=== PATIENT | male | born 1950 | race Hispanic/Latino ===

== ENCOUNTER 2018-03-17 16:41 | Emergency (ER) | payer OTHER ==
[2018-03-17] MEDS ORDERED: DICYCLOMINE HCL 10 MG CAP ONE (17:31)
[2018-03-17] MEDS ORDERED: ONDANSETRON 4 MG/2 ML VIAL ONE (17:32)
[2018-03-17] MEDS ORDERED: PANTOPRAZOLE 40 MG INJ ONE (17:32)
[2018-03-17 17:52] LABS: Absolute Lymphocytes (CBC) 0.8 K/uL (0.7-4.9); Absolute Monocytes 0.4 K/uL (0.1-1.3); Absolute Neutrophil 3.8 K/uL (1.8-8.0); Basophils % 0.8 % (0-1.3); Eosinophils % 1.5 % (0-4.4); Hematocrit 39.2 % (39.6-49.0); Lymphocytes % 16.1 % (15.3-44.8); MCH 28.1 pg (27.0-35.0); MCV 89.8 fL (80-100); MPV 8.6 fL (7.6-11.3); Monocytes % 7.1 % (3.3-12.3); RBC Red Blood Cell Count 4.36 M/uL (4.33-5.43)
[2018-03-17 18:40] LABS: AST/SGOT 16 U/L (15-37); Alkaline Phosphatase 128 U/L (45-117); Amylase Level 22 U/L (25-115); BUN Blood Urea Nitrogen 38 mg/dL (7-18); Bicarbonate 19 mmol/L (21-32); Bilirubin Direct 0.1 mg/dL (0-0.2); Bilirubin Total 0.4 mg/dL (0.2-1.0); Glucose Level 133 mg/dL (74-106); Lipase 22 U/L (73-393); Magnesium 1.9 mg/dL (1.8-2.4); Potassium 4.8 mmol/L (3.5-5.1); Sodium Level 131 mmol/L (136-145)
[2018-03-17 18:43] LABS: ALT/SGPT < 6 U/L (12-78)
[2018-03-17] MEDS ORDERED: HYDRALAZINE HCL 10 MG TABLET ONE (18:49)
--- NOTE | 2018-03-17 19:54 | RAD REPORT ---
EXAM DESCRIPTION: CT - Abdomen Pelvis Wo Contrast - 03/17/2018 7:34 pm CLINICAL HISTORY: Abdominal pain GI bleeding COMPARISON: October 2016 TECHNIQUE: Computed axial tomography of the abdomen and pelvis was obtained. IV was not requested. O ral contrast was given. Coronal reconstructions performed. All CT scans are performed using dose optimization technique as appropriate and may include automated exposure control or mA/KV adjustment according to patient size. FINDINGS: The evaluation of solid organs and vessels is limited secondary to the lack of contrast a dministration. Small bilateral pleural effusions are present. The liver, spleen, pancreas, and adrenals appear grossly normal. The pancreas is markedly atrophic. The kidneys are small. A transplant kidney is present within the left pelvis without hydronephrosis The appendix is normal. There is no evidence of diverticulitis. IMPRESSION: Small bilateral pleural effusions No acute abnormality involving the abdomen/pelvis is seen
[2018-03-17] MEDS ORDERED: cloNIDine HCl 0.1 MG TAB ONE (20:44)
[2018-03-17] MEDS ORDERED: MAGNE/ALUM HYDROXD 30 ML UCUP ONE (20:50)
[2018-03-17] MEDS ORDERED: LIDOCAINE VISCOUS 2% SOLN 15 ML UDC ONE (20:51)
[2018-03-17 21:24] LABS: Urine Blood 1+ (NEG); Urine Glucose TRACE (NEG); Urine Protein 3+ (NEG); Urine Specific Gravity 1.025 (1.005-1.030)
[2018-03-17 21:32] LABS: Urine Bacteria <20 /HPF (NONE SEEN); Urine Culture Reflex Order REFLEXED; Urine Mucus SLIGHT /HPF (NONE SEEN); Urine Sperm PRESENT (NONE SEEN)
--- NOTE | 2018-03-17 22:09 | EDPHYS ---
Physician Documentation [facility] Name: Francisco Javier Barnard Age: 67 yrs Sex: Male : 1950 Arrival Date: 03/17/2018 Time: 16:44 Bed 17 Private MD: None, None ED Physician Jose Orlando HPI: 03/17 16:55 This 67 yrs old Male presents to ER via Wheelchair with complaints of Abd Pain cp > 50 y/o. 16:55 The patient presents with abdominal pain mid abdomen. Onset: The symptoms/episode cp began/occurred 3 day(s) ago. Associated signs and symptoms: Pertinent positives: nausea and vomiting, anorexia, Pertinent negatives: chest pain, constipation, diarrhea, fever, shortness of breath, vomiting blood. The symptoms are described as waxing/waning. Modifying factors: the symptoms are aggravated by food. Historical: - Allergies: 16:52 No Known Allergies; sg - Home Meds: 18:43 hydralazine 10 mg Oral tab [Active]; metoprolol tartrate 25 mg Oral tab 1 tab [Active]; em sertraline 25 mg oral tab 1 tab once daily [Active]; gabapentin 100 mg oral cap 3 times per day [Active]; hydrocortisone 10 mg Oral tab 1 tab once daily [Active]; terazosin 2 mg oral cap 1 cap once daily [Active]; aspirin 81 mg Oral chew 1 tab once daily [Active]; pantoprazole 40 mg oral TbEC 1 tab 2 times per day [Active]; atorvastatin 40 mg oral tab 1 tab once daily [Active]; furosemide 20 mg Oral tab 1 tab 2 times per day [Active]; - PMHx: 16:52 Diabetes - IDDM; Dialysis; ESRD; Hypertension; sg - PSHx: 16:52 Kidney transplant; fistula to left arm; sg - Immunization history:: Adult Immunizations up to date. - Social history:: Smoking status: Patient/guardian denies using tobacco. - Ebola Screening: : Patient negative for fever greater than or equal to 101.5 degrees Fahrenheit, and additional compatible Ebola Virus Disease symptoms Patient denies exposure to infectious person Patient denies travel to an Ebola-affected area in the 21 days before illness onset No symptoms or risks identified at this time. ROS: 17:00 Constitutional: Negative for body aches, chills, fever, poor PO intake. cp 17:00 Eyes: Negative for injury, pain, redness, and discharge. cp 17:00 ENT: Negative for drainage from ear(s), ear pain, sore throat, difficulty swallowing, cp difficulty handling secretions. 17:00 Cardiovascular: Negative for chest pain, edema, palpitations. 17:00 Respiratory: Negative for cough, shortness of breath, wheezing. 17:00 Abdomen/GI: Positive for abdominal pain, nausea and vomiting, Negative for diarrhea, constipation, hematemesis, black/tarry stool, rectal bleeding. 17:00 Back: Negative for radiated pain. cp 17:00 Skin: Negative for cellulitis, rash. 17:00 Neuro: Negative for altered mental status, dizziness, headache, syncope, near syncope, weakness. 17:00 All other systems are negative. Exam: 17:07 Constitutional: The patient appears in no acute distress, alert, awake, cp non-diaphoretic, non-toxic, well developed, well nourished. 17:07 Head/Face: Normocephalic, atraumatic. cp 17:07 Eyes: Pupils equal round and reactive to light, extra-ocular motions intact. Lids and cp lashes normal. Conjunctiva and sclera are non-icteric and not injected. Cornea within normal limits. Periorbital areas with no swelling, redness, or edema. 17:07 ENT: External ear(s): are unremarkable, Nose: is normal, Mouth: Lips: moist, Oral cp mucosa: moist, Posterior pharynx: is normal, airway is patent, no erythema, no exudate, Voice: is normal. 17:07 Neck: ROM/movement: is normal, is supple, without pain, no range of motions limitations, no nuchal rigidity. 17:07 Chest/axilla: Inspection: normal, Palpation: is normal, no crepitus, no tenderness. 17:07 Cardiovascular: Rate: normal, Rhythm: regular, Edema: is not appreciated, JVD: is not appreciated. 17:07 Respiratory: the patient does not display signs of respiratory distress, Respirations: normal, no use of accessory muscles, no retractions, no splinting, no tachypnea, labored breathing, is not present, Breath sounds: decreased breath sounds, that are mild, throughout, stridor, is not appreciated, wheezing: is not appreciated. 17:07 Abdomen/GI: Inspection: abdomen appears normal, Bowel sounds: active, all quadrants, Palpation: soft, in all quadrants, mild abdominal tenderness, in the abdomen diffusely, rebound tenderness, is not appreciated, voluntary guarding, is not appreciated, involuntary guarding, is not appreciated. 17:07 Back: pain, is absent, ROM is normal. 17:07 Skin: cellulitis, is not appreciated, no rash present. 17:07 Neuro: Orientation: to person, place \T\ time. Mentation: is normal. 17:30 ECG was reviewed by the Attending Physician. cp Vital Signs: 17:03 BP 200 / 72; Pulse 60; Resp 17; Pulse Ox 97% on R/A; em 17:04 Resp 19; Temp 97.7(TE); Pulse Ox 96% on R/A; Pain 9/10; sg 17:45 BP 162 / 89; Pulse 61; Resp 18; Pulse Ox 97% on R/A; Pain 8/10; em 18:52 BP 212 / 85; Pulse 61; Resp 18; Pulse Ox 97% on R/A; Pain 0/10; em 19:15 BP 216 / 87; Pulse 61; Resp 16 S; Pulse Ox 97% on R/A; bs1 20:15 BP 198 / 80; Pulse 61; Resp 17 S; Pulse Ox 95% on R/A; bs1 21:15 BP 207 / 86; Pulse 57; Resp 16; Temp 97.9(O); Pulse Ox 97% on R/A; Pain 5/10; bs1 22:05 BP 184 / 77; Pulse 58; Resp 17; Temp 97.9(O); Pulse Ox 100% on R/A; Pain 4/10; bs1 MDM: 16:53 Patient medically screened. cp 18:00 Differential diagnosis: diverticulitis, gastritis, pancreatitis, Peptic Ulcer Disease, cp Perf. Duodenal Ulcer, Perf. Gastric Ulcer, urinary tract infection. 22:05 Data reviewed: vital signs, nurses notes, lab test result(s), radiologic studies, CT cp scan. 22:05 Counseling: I had a detailed discussion with the patient and/or guardian regarding: the cp historical points, exam findings, and any diagnostic results supporting the discharge/admit diagnosis, lab results, radiology results, the need for outpatient follow up, an manufacturing automation engineer, nephrology, to return to the emergency department if symptoms worsen or persist or if there are any questions or concerns that arise at home. Response to treatment: the patient's symptoms have markedly improved after treatment, Blood pressure improved. Abdominal pain improved. No vomiting observed in ED. Will discharge to home for continued monitoring. 03/17 17:16 Order name: Amylase, Serum; Complete Time: 18:52 03/17 17:16 Order name: Basic Metabolic Panel; Complete Time: 18:52 03/17 19:42 Interpretation: Normal except: NA 131; CL 97; CO2 19; GLUC 133; BUN 38; CRE 6.90; GFR cp 8; CA 8.0. 03/17 17:16 Order name: CBC with Diff; Complete Time: 18:18 03/17 18:18 Interpretation: Normal except: HGB 12.2; HCT 39.2; MCV 89.8; MCH 28.1; MCHC 31.3; RDW cp 17.7; LAKESHA% 74.5. 03/17 17:16 Order name: Creatinine for Radiology; Complete Time: 18:52 03/17 19:55 Interpretation: Reviewed. 03/17 17:16 Order name: Hepatic Function; Complete Time: 18:52 03/17 18:52 Interpretation: Normal except: ALT < 6; ALK 128; ALB 3.0; GLOB 4.0; A/G 0.8. 03/17 17:16 Order name: Lipase; Complete Time: 18:52 03/17 17:16 Order name: Urine Microscopic Only 03/17 17:16 Order name: Magnesium; Complete Time: 18:52 03/17 17:16 Order name: CT Abd/Pelvis - Without Cont: give oral contrast; Complete Time: 19:55 03/17 21:07 Order name: Urine Dipstick--Ancillary (enter results) eb 03/17 21:34 Order name: Urine Culture EDNC 03/17 17:16 Order name: IV Saline Lock; Complete Time: 18:51 03/17 17:16 Order name: Labs collected and sent; Complete Time: 18:51 03/17 17:16 Order name: Urine Dipstick-Ancillary (obtain specimen); Complete Time: 22:19 03/17 17:16 Order name: EKG; Complete Time: 17:16 03/17 17:16 Order name: EKG - Nurse/Tech; Complete Time: 18:51 cp 03/17 19:56 Order name: PO challenge; Complete Time: 20:37 cp EC:30 Rate is 61 beats/min. Rhythm is regular. MN interval is prolonged at 348 msec. QRS cp interval is normal. QT interval is normal. T waves are Inverted in lead aVL. Interpreted by me. Reviewed by me. Administered Medications: 17:45 Drug: Bentyl 20 mg Route: PO; em 18:51 Follow up: Response: No adverse reaction em 17:49 Drug: ProTONIX 40 mg Route: IVP; Site: right antecubital; ss 18:51 Follow up: Response: No adverse reaction; Pain is decreased; Nausea is decreased em 17:57 Drug: Zofran 4 mg Route: IVP; Site: right antecubital; ss 18:50 Follow up: Response: No adverse reaction; Nausea is decreased em 18:53 Drug: hydrALAZINE 20 mg Route: PO; em 22:26 Follow up: Response: No adverse reaction bs1 20:46 Drug: cloNIDine 0.2 mg Route: PO; bs1 22:26 Follow up: Response: No adverse reaction bs1 21:04 Drug: GI Cocktail without - (Maalox Suspension 30 ml, Lidocaine Liquid 2 % 15 bs1 ml) Route: PO; 22:26 Follow up: Response: No adverse reaction bs1 Disposition: 03/18 07:02 Co-signature as Attending Physician, Jose Orlando MD. rn Disposition: 03/17/18 22:08 Discharged to Home. Impression: Unspecified abdominal pain, Hypertensive heart and chronic kidney disease. - Condition is Stable. - Discharge Instructions: Abdominal Pain, Adult. - Prescriptions for Bentyl 20 mg Oral Tablet - take 2 tablet by ORAL route every 6 hours As needed; 40 tablet. Protonix 40 mg Oral Tablet - take 1 tablet by ORAL route once daily; 30 tablet. Zofran 4 mg Oral Tablet - take 1 tablet by ORAL route every 12 hours As needed; 20 tablet. - Medication Reconciliation Form, Thank You Letter, Antibiotic Education, Prescription Opioid Use form. - Follow up: Private Physician; When: 1 - 2 days; Reason: Recheck today's complaints. - Problem is new. - Symptoms have improved. Signatures: Dispatcher [facility] John Eaton, RN RN sg Efren Degroot, DIVERSITY SPECIALIST DIVERSITY SPECIALIST Jose Barrera MD MD rn Smirch, Shelby, RN RN ss Page, Corey, PA PA cp Amanda Blair, RN RN bs1 Corrections: (The following items were deleted from the chart) 03/17 19:43 18:52 Normal except: NA 131; CL 97; CO2 19; GLUC 133; BUN 38; CRE 6.90; GFR 8. cp cp 21:04 19:23 Apple ordered. cp bs1 22:27 22:08 03/17/2018 22:08 Discharged to Home. Impression: Unspecified abdominal pain; bs1 Hypertensive heart and chronic kidney disease. Condition is Stable. Forms are Medication Reconciliation Form, Thank You Letter, Antibiotic Education, Prescription Opioid Use. Follow up: Private Physician; When: 1 - 2 days; Reason: Recheck today's complaints. Problem is new. Symptoms have improved. cp
--- NOTE | 2018-03-17 22:09 | ER ---
Nurse's Notes [facility] Name: Francisco Javier Barnard Age: 67 yrs Sex: Male : 1950 Arrival Date: 03/17/2018 Time: 16:44 Bed 17 Private MD: None, None Diagnosis: Unspecified abdominal pain;Hypertensive heart and chronic kidney disease Presentation: 03/17 16:50 Presenting complaint: Patient states: Loss of appetite for two days, c/o pain and sg bleeding to his Dialysis port as well that started today. Transition of care: patient was not received from another setting of care. Onset of symptoms was March 17, 2018. Risk Assessment: Do you want to hurt yourself or someone else? Patient reports no desire to harm self or others. Initial Sepsis Screen: Does the patient meet any 2 criteria? No. Patient's initial sepsis screen is negative. Does the patient have a suspected source of infection? No. Patient's initial sepsis screen is negative. Care prior to arrival: None. 16:50 Method Of Arrival: Wheelchair sg 16:50 Acuity: AUDRA 3 sg Historical: - Allergies: 16:52 No Known Allergies; sg - Home Meds: 18:43 hydralazine 10 mg Oral tab [Active]; metoprolol tartrate 25 mg Oral tab 1 tab [Active]; em sertraline 25 mg oral tab 1 tab once daily [Active]; gabapentin 100 mg oral cap 3 times per day [Active]; hydrocortisone 10 mg Oral tab 1 tab once daily [Active]; terazosin 2 mg oral cap 1 cap once daily [Active]; aspirin 81 mg Oral chew 1 tab once daily [Active]; pantoprazole 40 mg oral TbEC 1 tab 2 times per day [Active]; atorvastatin 40 mg oral tab 1 tab once daily [Active]; furosemide 20 mg Oral tab 1 tab 2 times per day [Active]; - PMHx: 16:52 Diabetes - IDDM; Dialysis; ESRD; Hypertension; sg - PSHx: 16:52 Kidney transplant; fistula to left arm; sg - Immunization history:: Adult Immunizations up to date. - Social history:: Smoking status: Patient/guardian denies using tobacco. - Ebola Screening: : Patient negative for fever greater than or equal to 101.5 degrees Fahrenheit, and additional compatible Ebola Virus Disease symptoms Patient denies exposure to infectious person Patient denies travel to an Ebola-affected area in the 21 days before illness onset No symptoms or risks identified at this time. Screenin:20 Abuse screen: Denies threats or abuse. Nutritional screening: No deficits noted. em Tuberculosis screening: No symptoms or risk factors identified. Fall Risk None identified. Assessment: 17:20 General: Appears in no apparent distress. uncomfortable, Behavior is calm, cooperative. em Pain: Complains of pain in epigastric area Pain currently is 8 out of 10 on a pain scale. Pain began 2-3 days ago. Neuro: Level of Consciousness is awake, alert, Oriented to person, place, time, Denies dizziness. Cardiovascular: Capillary refill < 3 seconds Patient's skin is warm and dry. Dialysis shunt: in the left bicep, with palpable thrill, with auscultated bruit, with no erythema, with no edema, mild amount of bleeding noted pt had new dialysis shunt placed yesterday, mild blood noted, Tegaderm clean and intact. Respiratory: Airway is patent Respiratory effort is even, unlabored, Respiratory pattern is regular, symmetrical. GI: Abdomen is flat, Bowel sounds present X 4 quads. Abd is soft X 4 quads Abdomen is tender to palpation X 4 quads. Reports nausea. Derm: Skin is intact, Skin is pink, warm \T\ dry. Musculoskeletal: Range of motion: intact in all extremities. 17:25 General: The previous assessment is accurate, call light remains within reach. . ss 18:00 Reassessment: Patient appears in no apparent distress at this time. pt finished em drinking PO contrast, tolerated well, CT dept. notified. 18:44 Reassessment: Patient appears in no apparent distress at this time. Patient and/or em family updated on plan of care and expected duration. Pain level reassessed. Patient is alert, oriented x 3, equal unlabored respirations, skin warm/dry/pink. 18:50 Reassessment: Patient appears in no apparent distress at this time. BP 212/85, HR 61 em HUSEYIN Lewis notified of VS, new medication orders received. 19:10 Reassessment: Report received from JOHN Schwartz. bs1 19:10 General: Appears in no apparent distress. uncomfortable, Behavior is calm, cooperative, bs1 appropriate for age. Pain: Complains of pain in abdomen and epigastric area Pain currently is 5 out of 10 on a pain scale. Pain began 2-3 days ago. Neuro: Level of Consciousness is awake, alert, obeys commands, Oriented to person, place, time, situation, Appropriate for age Denies dizziness. Cardiovascular: Denies chest pain, shortness of breath, Heart tones S1 S2 present Capillary refill < 3 seconds Patient's skin is warm and dry. Dialysis shunt: in the left arm, with palpable thrill, with auscultated bruit, with no erythema, with no edema, mild amount of bleeding noted. Respiratory: Airway is patent Trachea midline Respiratory effort is even, unlabored, Respiratory pattern is regular, symmetrical, Breath sounds are clear bilaterally. GI: Abdomen is flat, non-distended, Bowel sounds present X 4 quads. Abd is soft X 4 quads Abdomen is tender to palpation X 4 quads. Reports upper abdominal pain, epigastric pain. : No signs and/or symptoms were reported regarding the genitourinary system. Derm: Skin is intact, Skin is pink, warm \T\ dry. Musculoskeletal: Circulation, motion, and sensation intact. Capillary refill < 3 seconds, Range of motion: intact in all extremities. 21:00 Reassessment: PA Page gave nurse verbal order to give GI cocktail. Clonidine 0.2mg po bs1 given x1. Pending blood pressure to decrease for discharge. 21:15 Reassessment: Patient appears in no apparent distress at this time. Patient and/or bs1 family updated on plan of care and expected duration. Pain level reassessed. Patient is alert, oriented x 3, equal unlabored respirations, skin warm/dry/pink. 22:05 Reassessment: Informed PA of recent blood pressure 184/77. bs1 22:23 Reassessment: Patient appears in no apparent distress at this time. Patient and/or bs1 family updated on plan of care and expected duration. Pain level reassessed. Patient is alert, oriented x 3, equal unlabored respirations, skin warm/dry/pink. Patient states feeling better. Patient states symptoms have improved. Vital Signs: 17:03 BP 200 / 72; Pulse 60; Resp 17; Pulse Ox 97% on R/A; em 17:04 Resp 19; Temp 97.7(TE); Pulse Ox 96% on R/A; Pain 9/10; sg 17:45 BP 162 / 89; Pulse 61; Resp 18; Pulse Ox 97% on R/A; Pain 8/10; em 18:52 BP 212 / 85; Pulse 61; Resp 18; Pulse Ox 97% on R/A; Pain 0/10; em 19:15 BP 216 / 87; Pulse 61; Resp 16 S; Pulse Ox 97% on R/A; bs1 20:15 BP 198 / 80; Pulse 61; Resp 17 S; Pulse Ox 95% on R/A; bs1 21:15 BP 207 / 86; Pulse 57; Resp 16; Temp 97.9(O); Pulse Ox 97% on R/A; Pain 5/10; bs1 22:05 BP 184 / 77; Pulse 58; Resp 17; Temp 97.9(O); Pulse Ox 100% on R/A; Pain 4/10; bs1 ED Course: 16:44 Patient arrived in ED. sb2 16:44 None, None is Private Physician. sb2 16:49 Joshua Moise PA is PHCP. cp 16:49 Jose Orlando MD is Attending Physician. cp 16:51 Triage completed. sg 16:52 Arm band placed on. sg 17:02 Efren Degroot LVN is Primary Nurse. em 17:20 Patient has correct armband on for positive identification. Bed in low position. Call em light in reach. Side rails up X2. Adult w/ patient. 17:30 Missed attempt(s): 22 gauge in right antecubital area. mh5 17:37 EKG done, by medical research tech. reviewed by Joshua FONTANEZ. 3 18:50 Pulse ox on. NIBP on. mh5 19:[address] nj 19:32 CT completed. Patient tolerated procedure well. Patient moved back from CT. nj 19:34 CT Abd/Pelvis - Without Cont: give oral contrast In Process Unspecified. EDMS 22:22 No provider procedures requiring assistance completed. IV discontinued, bleeding bs1 controlled, No redness/swelling at site. Pressure dressing applied. Administered Medications: 17:45 Drug: Bentyl 20 mg Route: PO; em 18:51 Follow up: Response: No adverse reaction em 17:49 Drug: ProTONIX 40 mg Route: IVP; Site: right antecubital; ss 18:51 Follow up: Response: No adverse reaction; Pain is decreased; Nausea is decreased em 17:57 Drug: Zofran 4 mg Route: IVP; Site: right antecubital; ss 18:50 Follow up: Response: No adverse reaction; Nausea is decreased em 18:53 Drug: hydrALAZINE 20 mg Route: PO; em 22:26 Follow up: Response: No adverse reaction bs1 20:46 Drug: cloNIDine 0.2 mg Route: PO; bs1 22:26 Follow up: Response: No adverse reaction bs1 21:04 Drug: GI Cocktail without - (Maalox Suspension 30 ml, Lidocaine Liquid 2 % 15 bs1 ml) Route: PO; 22:26 Follow up: Response: No adverse reaction bs1 Outcome: 22:08 Discharge ordered by MD. cp 22:22 Discharged to home ambulatory, with significant other. bs1 22:22 Condition: stable 22:22 Discharge instructions given to patient, family, Instructed on discharge instructions, follow up and referral plans. medication usage, Demonstrated understanding of instructions, follow-up care, medications, Prescriptions given X 3. 22:27 Patient left the ED. bs1 Signatures: Dispatcher [employer] EDJohn Townsend, RN RN sg Efren Degroot, PHP WEB DEVELOPER PHP WEB DEVELOPER em Ella Cabezas RN RN ss Joshua Moise PA PA Edis zAul Maria Amanda Wright, RN RN bs1 Marjyane Marie sb2 Katlin Helton sm3 Corrections: (The following items were deleted from the chart) 18:49 18:48 Missed attempt(s): 22 gauge in right antecubital area. 5 5 22:26 22:05 BP 184 / 77; Pulse 58bpm; Resp 17bpm; Pulse Ox 100% RA; bs1 bs1
[2018-03-17 22:38] VITALS: TEMP 97.9
[2018-03-17 22:39] VITALS: BP 184/77; O2SAT 100
--- NOTE | 2018-03-17 23:00 | EKG ---
Test Date: 2018-03-17 Test Time: 17:24:33 Balancing Machine Set Up Worker: TARA MEASUREMENT RESULTS: Intervals: Rate: 61 [place]: 348 QRSD: 94 QT: 430 QTc: 432 [place]: P: -7 NJ: 348 QRS: 63 T: 134 INTERPRETIVE STATEMENTS: Sinus rhythm with 1st degree AV block ST & T wave abnormality, consider lateral ischemia Abnormal ECG Compared to ECG 09/28/2017 12:58:58 Possible ischemia now present ST (T wave) deviation still present Electronically Signed On 03-17-18 23:00:25 CDT by Janes Oliveira
== END 2018-03-17 22:27 | disposition home or self-care (01) ==
LOC: ER 16:41
DX: I13.11 Hypertensive heart and chronic kidney disease without heart failure, with stage 5 chronic kidney disease, or end stage renal disease (principal); N18.6 End stage renal disease; Z99.2 Dependence on renal dialysis; E11.9 Type 2 diabetes mellitus without complications; Z79.82 Long term (current) use of aspirin
CPT/HCPCS: 36415; 74176; 80048; 80076; 82150; 83690; 83735; 85025; 87086; 87088; 93005; 96374; 96375; 99284; C9113; J2405; 81003; 81015

== ENCOUNTER 2018-03-20 19:50 | Emergency (ER) | payer OTHER ==
[2018-03-20] MEDS ORDERED: LABETALOL 20 MG/4ML SYRINGE IV ONE ×2 (20:52→21:54)
[2018-03-20 20:56] LABS: Absolute Lymphocytes (CBC) 0.8 K/uL (0.7-4.9); Absolute Monocytes 0.4 K/uL (0.1-1.3); Absolute Neutrophil 2.5 K/uL (1.8-8.0); Basophils % 0.8 % (0-1.3); Hematocrit 36.8 % (39.6-49.0); MCH 29.1 pg (27.0-35.0); MCV 87.7 fL (80-100); MPV 8.2 fL (7.6-11.3); RBC Red Blood Cell Count 4.19 M/uL (4.33-5.43)
--- NOTE | 2018-03-20 21:16 | RAD REPORT ---
EXAM DESCRIPTION: Mey Single View03/20/2018 8:49 pm CLINICAL HISTORY: Chest pain COMPARISON: September 2017 FINDINGS: Patchy bilateral alveolar opacities are present within the lungs. The heart is mildly enl arged. A central venous catheter remains in place. Small pleural effusions are suspected IMPRESSION: Mild to moderate patchy bilateral pulmonary opacities could represent pulmonary edema or pneumonia
[2018-03-20 21:23] LABS: Albumin 3.3 g/dL (3.4-5.0); Bilirubin Direct 0.1 mg/dL (0-0.2); Bilirubin Total 0.4 mg/dL (0.2-1.0); CKMB Creatine Kinase MB 3.1 ng/mL (0.3-3.6); Magnesium 1.9 mg/dL (1.8-2.4); Protein, Total 7.5 g/dL (6.4-8.2)
[2018-03-20 21:41] LABS: Protime INR 1.02
[2018-03-20] MEDS ORDERED: cloNIDine HCl 0.1 MG TAB ONE ×3 (21:53→22:50)
[2018-03-20] MEDS ORDERED: LABETALOL HCL 100 MG/20 ML ONE (21:53)
--- NOTE | 2018-03-20 23:34 | EDPHYS ---
Physician Documentation [facility] Name: Francisco Javier Barnard Age: 67 yrs Sex: Male : 1950 Arrival Date: 03/20/2018 Time: 19:56 Bed 2 Private MD: ED Physician Enmanuel Guthrie HPI: 03/20 23:35 This 67 yrs old Male presents to ER via EMS with complaints of elevated BP, tw4 possible mental status change. 23:35 The patient has elevated blood pressure and discovered this at home. Onset: The tw4 symptoms/episode began/occurred today. Modifying factors: The symptoms are aggravated by The symptoms are alleviated by. Associated signs and symptoms: The patient has no apparent associated signs or symptoms. Severity of symptoms: At its worst the blood pressure was severe, in the emergency department the blood pressure is unchanged. The patient has experienced similar episodes in the past, multiple times. Historical: - Allergies: 20:03 No Known Allergies; ak1 - Home Meds: 20:03 aspirin 81 mg Oral chew 1 tab once daily [Active]; atorvastatin 40 mg Oral tab 1 tab ak1 once daily [Active]; furosemide 20 mg Oral tab 1 tab 2 times per day [Active]; gabapentin 100 mg Oral cap 3 times per day [Active]; hydralazine 10 mg Oral tab [Active]; hydrocortisone 10 mg Oral tab 1 tab once daily [Active]; metoprolol tartrate 25 mg Oral tab 1 tab [Active]; pantoprazole 40 mg Oral TbEC 1 tab 2 times per day [Active]; sertraline 25 mg Oral tab 1 tab once daily [Active]; terazosin 2 mg Oral cap 1 cap once daily [Active]; - PMHx: 20:03 Diabetes - IDDM; Dialysis; ESRD; Hypertension; ak1 - PSHx: 20:03 Kidney transplant; fistula to left arm; ak1 - Immunization history:: Adult Immunizations unknown. - Social history:: Smoking status: unknown. - Ebola Screening: : No symptoms or risks identified at this time. ROS: 23:35 Constitutional: Negative for fever, chills, and weight loss, Cardiovascular: Negative tw4 for chest pain, palpitations, and edema, Respiratory: Negative for shortness of breath, cough, wheezing, and pleuritic chest pain, Abdomen/GI: Negative for abdominal pain, nausea, vomiting, diarrhea, and constipation, Back: Negative for injury and pain, MS/Extremity: Negative for injury and deformity, Skin: Negative for injury, rash, and discoloration, Neuro: Negative for headache, weakness, numbness, tingling, and seizure. Exam: 23:35 Constitutional: This is a well developed, well nourished patient who is awake, alert, tw4 and in no acute distress. Head/Face: Normocephalic, atraumatic. Chest/axilla: Normal chest wall appearance and motion. Nontender with no deformity. No lesions are appreciated. Cardiovascular: Regular rate and rhythm with a normal S1 and S2. No gallops, murmurs, or rubs. Normal PMI, no JVD. No pulse deficits. Respiratory: Lungs have equal breath sounds bilaterally, clear to auscultation and percussion. No rales, rhonchi or wheezes noted. No increased work of breathing, no retractions or nasal flaring. Abdomen/GI: Soft, non-tender, with normal bowel sounds. No distension or tympany. No guarding or rebound. No evidence of tenderness throughout. Back: No spinal tenderness. No costovertebral tenderness. Full range of motion. MS/ Extremity: Pulses equal, no cyanosis. Neurovascular intact. Full, normal range of motion. Neuro: Awake and alert, GCS 15, oriented to person, place, time, and situation. Cranial nerves II-XII grossly intact. Motor strength 5/5 in all extremities. Sensory grossly intact. Cerebellar exam normal. Normal gait. Vital Signs: 20:03 BP 226 / 95; Pulse 66; Resp 20; Temp 98.5(O); Pulse Ox 99% on R/A; Weight 63 kg (R); ak1 Height 62 in. (157.48 cm) (R); 21:11 BP 199 / 92; Pulse 75; Resp 20; Pulse Ox 97% on R/A; ea 21:32 BP 225 / 99; Pulse 76; Resp 18; Pulse Ox 99% on R/A; ea 21:47 BP 215 / 94; Pulse 77; Resp 18; Pulse Ox 97% on R/A; ak1 22:30 BP 158 / 100 RA (man/); Pulse 70; Resp 18; Pulse Ox 99% on R/A; ea 23:33 BP 160 / 92 RA Supine (man/); Pulse 80; Resp 20; Temp 98.5; Pulse Ox 97% on R/A; Pain ak1 0/10; 03/21 00:00 BP 152 / 90; Pulse 70; Resp 20; Temp 98.2(O); Pulse Ox 97% on R/A; ea 03/20 20:03 Body Mass Index 25.40 (63.00 kg, 157.48 cm) ak1 03/20 23:33 manual BP taken by Sayra Engle RN ak1 MDM: 20:28 Patient medically screened. tw4 23:35 Differential diagnosis: hypertensive crisis, Malignant HTN. Data reviewed: vital signs, tw4 nurses notes. Counseling: I had a detailed discussion with the patient and/or guardian regarding: the historical points, exam findings, and any diagnostic results supporting the discharge/admit diagnosis. Medication response: clonidine partially reduced the patient's blood pressure, Response to treatment: the patient's symptoms have markedly improved after treatment, and as a result, I will discharge patient. Special discussion: I discussed with the patient/guardian in detail that at this point there is no indication for admission to the hospital. It is understood, however, that if the symptoms persist or worsen the patient needs to return immediately for re-evaluation. 03/20 20:35 Order name: Basic Metabolic Panel; Complete Time: 22:19 tw4 03/20 22:20 Interpretation: Normal except: BUN 16; CRE 4.10; GFR 15; CA 8.0; NA 134. tw4 03/20 20:35 Order name: CBC with Diff; Complete Time: 22:19 tw4 03/20 22:20 Interpretation: Normal except: WBC 3.9; RBC 4.19; HGB 12.2; HCT 36.8; RDW 17.9; tw4 EOSINOPHIL % 5.0. 03/20 20:35 Order name: Ckmb; Complete Time: 22:19 tw4 03/20 22:20 Interpretation: Within normal limits: CKMB 3.1. tw03/20 20:35 Order name: CPK; Complete Time: 22:19 tw4 03/20 20:35 Order name: LFT's; Complete Time: 22:19 tw4 03/20 22:20 Interpretation: Normal except: ALT 10; ALK 145; ALB 3.3; GLOB 4.2; A/G 0.8. 03/20 20:35 Order name: Magnesium; Complete Time: 22:19 03/20 22:20 Interpretation: Within normal limits: MG 1.9. 03/20 20:35 Order name: NT PRO-BNP; Complete Time: 22:19 03/20 20:35 Order name: PT-INR; Complete Time: 22:19 03/20 22:20 Interpretation: Within normal limits: PT 12.0. 03/20 20:35 Order name: Ptt, Activated; Complete Time: 22:19 03/20 22:21 Interpretation: Within normal limits: PTT 26.3. 03/20 20:35 Order name: Troponin (emerg Dept Use Only); Complete Time: 22:19 03/20 20:35 Order name: XRAY Chest (1 view); Complete Time: 22:19 03/20 20:35 Order name: EKG; Complete Time: 20:38 03/20 20:35 Order name: Cardiac monitoring; Complete Time: 20:49 03/20 20:35 Order name: EKG - Nurse/Tech; Complete Time: 20:36 03/20 20:35 Order name: IV Saline Lock; Complete Time: 20:36 03/20 20:35 Order name: Labs collected and sent; Complete Time: 20:49 03/20 20:35 Order name: O2 Per Protocol; Complete Time: 20:36 03/20 20:35 Order name: O2 Sat Monitoring; Complete Time: 20:36 tw4 EC/03 00:10 Rate is 67 beats/min. Rhythm is regular. QRS [place] is Normal. CT interval is normal. QRS tw4 interval is normal. QT interval is normal. No Q waves. T waves are Peaked in leads V1, V2, V3. T waves are Inverted in leads II, V5, V6. ST Segment is depressed in leads I, III. Clinical impression: No change from prior ECG, Cardiac ischemia, and LVH. Interpreted by me. Reviewed by me. Administered Medications: 03/20 20:59 Drug: Labetalol 10 mg Route: IVP; Infused Over: 2 mins; Site: right hand; ea 21:47 Follow up: Response: No adverse reaction; Blood pressure is lowered ak1 21:56 Drug: cloNIDine 0.1 mg Route: PO; ak1 22:39 Follow up: Response: No adverse reaction ak1 21:56 Drug: Labetalol 10 mg Route: IVP; Infused Over: 2 mins; Site: right hand; ak1 22:39 Follow up: Response: No adverse reaction ak1 22:47 Drug: cloNIDine 0.2 mg Route: PO; ak1 23:35 Follow up: Response: No adverse reaction; Blood pressure is lowered ak1 23:36 Not Given (verbal orders from Dr. Guthrie to hold medication ): HydrALAZINE 25 mg PO onceak1 Disposition: 03/20/18 23:34 Discharged to Home. Impression: Hypertension secondary to other renal disorders, Chronic kidney disease, stage 5. - Condition is Stable. - Discharge Instructions: Hypertension, Hypertension, [id number], How to Take Your Blood Pressure, [id number], Chronic Kidney Disease, Dialysis Diet, [id number]. - Medication Reconciliation Form, Thank You Letter, Antibiotic Education, Prescription Opioid Use form. - Follow up: Private Physician; When: As needed; Reason: Recheck today's complaints, Re-evaluation by your physician. - Problem is new. - Symptoms have improved. Signatures: Dispatcher [employer] EDAmalia Melissa RN RN ak1 Ramona Pablo RN RN ea Wadley, Terrence, MD MD tw4 Corrections: (The following items were deleted from the chart) 23:59 20:35 Urine Dipstick-Ancillary ordered. tw4 ak1 03/21 00:16 03/20 23:34 03/20/2018 23:34 Discharged to Home. Impression: Hypertension secondary to ea other renal disorders; Chronic kidney disease, stage 5. Condition is Stable. Forms are Medication Reconciliation Form, Thank You Letter, Antibiotic Education, Prescription Opioid Use. Follow up: Private Physician; When: As needed; Reason: Recheck today's complaints, Re-evaluation by your physician. Problem is new. Symptoms have improved. tw4
--- NOTE | 2018-03-20 23:34 | ER ---
Nurse's Notes [facility] Name: Francisco Javier Barnard Age: 67 yrs Sex: Male : 1950 Arrival Date: 03/20/2018 Time: 19:56 Bed 2 Private MD: Diagnosis: Hypertension secondary to other renal disorders;Chronic kidney disease, stage 5 Presentation: 03/20 19:58 Presenting complaint: EMS states: pt was more altered than "normal" per dialysis ak1 nurses. pt had 1.184L removed today. pt with current to port to right chest wall, new fistula to left arm. unknown wound to left foot with new bandages in place. Transition of care: patient was not received from another setting of care. Onset of symptoms is unknown. Risk Assessment: Do you want to hurt yourself or someone else? Patient reports no desire to harm self or others. Initial Sepsis Screen: Does the patient meet any 2 criteria? No. Patient's initial sepsis screen is negative. Does the patient have a suspected source of infection? No. Patient's initial sepsis screen is negative. Care prior to arrival: None. 19:58 Method Of Arrival: EMS: [facility] ak1 19:58 Acuity: AUDRA 2 ak1 Triage Assessment: 19:58 General: Appears in no apparent distress. Behavior is calm, cooperative. ak1 Historical: - Allergies: 20:03 No Known Allergies; ak1 - Home Meds: 20:03 aspirin 81 mg Oral chew 1 tab once daily [Active]; atorvastatin 40 mg Oral tab 1 tab ak1 once daily [Active]; furosemide 20 mg Oral tab 1 tab 2 times per day [Active]; gabapentin 100 mg Oral cap 3 times per day [Active]; hydralazine 10 mg Oral tab [Active]; hydrocortisone 10 mg Oral tab 1 tab once daily [Active]; metoprolol tartrate 25 mg Oral tab 1 tab [Active]; pantoprazole 40 mg Oral TbEC 1 tab 2 times per day [Active]; sertraline 25 mg Oral tab 1 tab once daily [Active]; terazosin 2 mg Oral cap 1 cap once daily [Active]; - PMHx: 20:03 Diabetes - IDDM; Dialysis; ESRD; Hypertension; ak1 - PSHx: 20:03 Kidney transplant; fistula to left arm; ak1 - Immunization history:: Adult Immunizations unknown. - Social history:: Smoking status: unknown. - Ebola Screening: : No symptoms or risks identified at this time. Screenin:08 Abuse screen: Denies threats or abuse. Denies injuries from another. Nutritional ak1 screening: No deficits noted. Tuberculosis screening: No symptoms or risk factors identified. Fall Risk Gait- Weak (10 pts.). Assessment: 20:13 General: Appears in no apparent distress. Behavior is calm, cooperative, appropriate ea for age. General: Behavior is. Pain: Complains of pain in abdomen Pain radiates to lumbar area, left low back and right low back Pain currently is 7 out of 10 on a pain scale. Quality of pain is described as aching. Neuro: Level of Consciousness is awake, alert, obeys commands, Oriented to person, place, situation. Cardiovascular: Patient's skin is warm and dry. Respiratory: Airway is patent Respiratory effort is even, unlabored, Respiratory pattern is regular, symmetrical, Breath sounds are clear bilaterally. GI: Abdomen is non-distended, Bowel sounds present X 4 quads. : No signs and/or symptoms were reported regarding the genitourinary system. EENT: No signs and/or symptoms were reported regarding the EENT system. Derm: Skin is dry, Skin is normal, Skin temperature is warm. 21:15 Reassessment: Patient and/or family updated on plan of care and expected duration. Pain ea level reassessed. Pt alert and oriented to self, place and situation. Pt denies pain at this time. Respirations even and unlabored. chest expansions even and symmetrical. 23:36 Reassessment: pt son, Petey, contacted at [phone] for pt transport. Petey's akDerick stated she would be up to the ER to hot die picker pt. . 03/21 00:14 Reassessment: Patient and/or family updated on plan of care and expected duration. Pain ea level reassessed. Patient is alert, oriented x 3, equal unlabored respirations, skin warm/dry/pink. Discharge instructions given to patient and family, verbalized the understanding of instruction. Vital Signs: 03/20 20:03 BP 226 / 95; Pulse 66; Resp 20; Temp 98.5(O); Pulse Ox 99% on R/A; Weight 63 kg (R); ak1 Height 62 in. (157.48 cm) (R); 21:11 BP 199 / 92; Pulse 75; Resp 20; Pulse Ox 97% on R/A; ea 21:32 BP 225 / 99; Pulse 76; Resp 18; Pulse Ox 99% on R/A; ea 21:47 BP 215 / 94; Pulse 77; Resp 18; Pulse Ox 97% on R/A; ak1 22:30 BP 158 / 100 RA (man/); Pulse 70; Resp 18; Pulse Ox 99% on R/A; ea 23:33 BP 160 / 92 RA Supine (man/); Pulse 80; Resp 20; Temp 98.5; Pulse Ox 97% on R/A; Pain ak1 0/10; 03/21 00:00 BP 152 / 90; Pulse 70; Resp 20; Temp 98.2(O); Pulse Ox 97% on R/A; ea 03/20 20:03 Body Mass Index 25.40 (63.00 kg, 157.48 cm) ak1 03/20 23:33 manual BP taken by Sayra Engle RN ak1 ED Course: 19:56 Patient arrived in ED. ak1 20:00 Triage completed. ak1 20:01 Arm band placed on Patient placed in an exam room, on a stretcher, on pulse oximetry, ak1 Patient notified of wait time. 20:08 Patient has correct armband on for positive identification. Bed in low position. Call ak1 light in reach. Side rails up X2. desk monitor on. Pulse ox on. NIBP on. 20:13 Ramona Pablo, MELISA is Primary Nurse. ea 20:28 Enmanuel Guthrie MD is Attending Physician. tw4 20:35 Inserted saline lock: 22 gauge in right hand, using aseptic technique. Blood collected. ak1 20:35 EKG done, by ED staff, reviewed by Enmanuel Guthrie MD. ak1 20:48 XRAY Chest (1 view) In Process Unspecified. EDMS 23:36 No provider procedures requiring assistance completed. ak1 03/21 00:00 IV discontinued, intact, bleeding controlled, No redness/swelling at site. Pressure ea dressing applied. Administered Medications: 03/20 20:59 Drug: Labetalol 10 mg Route: IVP; Infused Over: 2 mins; Site: right hand; ea 21:47 Follow up: Response: No adverse reaction; Blood pressure is lowered ak1 21:56 Drug: cloNIDine 0.1 mg Route: PO; ak1 22:39 Follow up: Response: No adverse reaction ak1 21:56 Drug: Labetalol 10 mg Route: IVP; Infused Over: 2 mins; Site: right hand; ak1 22:39 Follow up: Response: No adverse reaction ak1 22:47 Drug: cloNIDine 0.2 mg Route: PO; ak1 23:35 Follow up: Response: No adverse reaction; Blood pressure is lowered ak1 23:36 Not Given (verbal orders from Dr. Guthrie to hold medication ): HydrALAZINE 25 mg PO onceak1 Outcome: 23:34 Discharge ordered by MD. casper 23:36 Condition: good ak1 03/21 00:13 Discharged to home via wheelchair, with family. karrie Discharge instructions given to patient, family, Instructed on discharge instructions, follow up and referral plans. Demonstrated understanding of instructions, follow-up care. 00:16 Patient left the ED. ea Signatures: Dispatcher [employer] Amalia Bello RN MELISA akRamona Valencia RN Enmanuel Martinez ea, MD MD tw4
[2018-03-21 00:46] VITALS: O2SAT 97
[2018-03-21 00:47] VITALS: BP 152/90; TEMP 98.2
--- NOTE | 2018-03-21 15:36 | EKG ---
Test Date: 2018-03-20 Test Time: 20:20:08 Ethnographic Materials Conservator: ELISE MEASUREMENT RESULTS: Intervals: Rate: 67 WV: 366 QRSD: 94 QT: 410 QTc: 433 [place]: P: 71 WV: 366 QRS: 73 T: 177 INTERPRETIVE STATEMENTS: Sinus rhythm with 1st degree AV block ST & T wave abnormality, consider inferolateral ischemia Abnormal ECG Compared to ECG 03/17/2018 17:24:33 No significant changes Electronically Signed On 03-21-18 15:34:05 CDT by Jose Pierre
== END 2018-03-21 00:16 | disposition home or self-care (01) ==
LOC: ER 19:50
DX: I12.0 Hypertensive chronic kidney disease with stage 5 chronic kidney disease or end stage renal disease (principal); E11.22 Type 2 diabetes mellitus with diabetic chronic kidney disease; N18.6 End stage renal disease; Z79.4 Long term (current) use of insulin; Z94.0 Kidney transplant status
CPT/HCPCS: 36415; 71045; 80048; 80076; 82550; 82553; 83735; 83880; 84484; 85025; 85610; 85730; 93005; 96374; 99285

== ENCOUNTER 2018-03-22 19:53 | Emergency (ER) | payer OTHER ==
[2018-03-22 20:46] LABS: Urine Blood 1+ (NEG); Urine Glucose 1+ (NEG); Urine Protein 3+ (NEG)
[2018-03-22 20:47] LABS: Absolute Lymphocytes (CBC) 0.6 K/uL (0.7-4.9); Absolute Monocytes 0.5 K/uL (0.1-1.3); Absolute Neutrophil 2.8 K/uL (1.8-8.0); Basophils % 1.4 % (0-1.3); Eosinophils % 8.8 % (0-4.4); Hematocrit 37.2 % (39.6-49.0); MCH 29.4 pg (27.0-35.0); MCV 89.4 fL (80-100); MPV 8.5 fL (7.6-11.3); Monocytes % 10.8 % (3.3-12.3); RBC Red Blood Cell Count 4.16 M/uL (4.33-5.43)
[2018-03-22 21:01] LABS: Potassium 3.4 mmol/L (3.5-5.1)
--- NOTE | 2018-03-22 21:54 | RAD REPORT ---
EXAM DESCRIPTION: CT - Head Brain Wo Cont - 03/22/2018 9:34 pm CLINICAL HISTORY: Alteration of awareness/confusion COMPARISON: 2009 TECHNIQUE: Computed axial tomography of the head was obtained. IV contrast was not requested. All CT scans are performed using dose optimization technique as appropriate and may include automated exposure control or mA/KV adjustment according to patient size. FINDINGS: An intracranial bleed is not seen . The ventricles are normal in caliber. No extra-axial fluid collection is noted. Mild to moderate low-density areas within periventricular, deep and subcortical white matter likely represent ischemic changes secondary to small vessel disease . Fluid within the sinuses/ mastoids is not seen. IMPRESSION: No acute intracranial abnormality is seen. If patient's symptoms persist MRI of the bra in would be recommended.
--- NOTE | 2018-03-22 22:12 | EDPHYS ---
Physician Documentation [facility] Name: Francisco Javier Barnard Age: 67 yrs Sex: Male : 1950 Arrival Date: 03/22/2018 Time: 19:55 Bed 25 Private MD: ED Physician Tin Duarte HPI: 03/22 22:00 This 67 yrs old Male presents to ER via EMS with complaints of General gs Weakness. 22:07 The patient presents to the emergency department with weakness of the entire body, gs generalized weakness. Onset: The symptoms/episode began/occurred 1 month(s) ago, and became worse and became persistent. Associated signs and symptoms: Pertinent positives: weakness, of balance, near falling, Pertinent negatives: altered mental status, paresthesias, seizure, syncope. Severity of symptoms: At their worst the symptoms were moderate in the emergency department the symptoms are unchanged. The patient has experienced similar episodes in the past, a few times. The patient has been recently seen at the [facility] Emergency Department, this week, for similar complaints had cardiac workup no ct head, dx with htn. daughter says came here for same symptoms. Historical: - Allergies: 20:15 No Known Allergies; kr2 - Home Meds: 20:15 aspirin 81 mg Oral chew 1 tab once daily [Active]; atorvastatin 20 mg oral tab kr2 [Active]; metoprolol tartrate 25 mg Oral tab 1 tab 2 times per day [Active]; sertraline 25 mg Oral tab 1 tab once daily [Active]; terazosin 2 mg Oral cap 1 cap once daily [Active]; pantoprazole 40 mg Oral TbEC 1 tab 2 times per day [Active]; furosemide 80 mg oral tab 2 times per day [Active]; gabapentin 300 mg oral cap 1 cap 3 times per day [Active]; hydralazine 10 mg Oral tab 1 tab TID [Active]; hydrocortisone 10 mg Oral tab 1 tab once daily [Active]; metoclopramide HCl 10 mg Oral tab 1 tab TID [Active]; tramadol 50 mg Oral tab 1 tab every 4 hours [Active]; Rapamune 1 mg oral tab 2 tabs once daily [Active]; 20:17 [place] 5-325 mg Oral tab 1 tab 4 times per day as needed for pain [Active]; Calcium kr2 Carbonate Oral [Active]; - PMHx: 20:15 Diabetes - IDDM; Dialysis; ESRD; Hypertension; kr2 - PSHx: 20:15 Kidney transplant; fistula to left arm; kr2 - Immunization history:: Adult Immunizations unknown. - Social history:: Smoking status: Patient/guardian denies using tobacco. - Ebola Screening: : No symptoms or risks identified at this time. ROS: 22:07 All other systems are negative. gs Exam: 22:07 Head/Face: Normocephalic, atraumatic. Eyes: Pupils equal round and reactive to light, gs extra-ocular motions intact. Lids and lashes normal. Conjunctiva and sclera are non-icteric and not injected. Cornea within normal limits. Periorbital areas with no swelling, redness, or edema. ENT: Nares patent. No nasal discharge, no septal abnormalities noted. Tympanic membranes are normal and external auditory canals are clear. Oropharynx with no redness, swelling, or masses, exudates, or evidence of obstruction, uvula midline. Mucous membranes moist. Neck: Trachea midline, no thyromegaly or masses palpated, and no cervical lymphadenopathy. Supple, full range of motion without nuchal rigidity, or vertebral point tenderness. No Meningismus. Chest/axilla: Normal chest wall appearance and motion. Nontender with no deformity. No lesions are appreciated. Cardiovascular: Regular rate and rhythm with a normal S1 and S2. No gallops, murmurs, or rubs. Normal PMI, no JVD. No pulse deficits. Respiratory: Lungs have equal breath sounds bilaterally, clear to auscultation and percussion. No rales, rhonchi or wheezes noted. No increased work of breathing, no retractions or nasal flaring. Abdomen/GI: Soft, non-tender, with normal bowel sounds. No distension or tympany. No guarding or rebound. No evidence of tenderness throughout. Back: No spinal tenderness. No costovertebral tenderness. Full range of motion. Skin: Warm, dry with normal turgor. Normal color with no rashes, no lesions, and no evidence of cellulitis. MS/ Extremity: Pulses equal, no cyanosis. Neurovascular intact. Full, normal range of motion. 22:07 Constitutional: The patient appears alert, awake. 22:07 Neuro: Orientation: to person, place, time \T\ situation. Cranial nerves: CN II- XII are normal as tested, Cerebellar function: no acute changes, Motor: moves all fours, Sensation: no obvious gross deficits, Gait: shuffling, needs assistance, uses walker normally. Vital Signs: 20:17 BP 157 / 83; Pulse 84; Resp 17; Temp 98.4; Pulse Ox 97% on R/A; Weight 60.78 kg; Height kr2 5 ft. (152.40 cm); Pain 0/10; 21:47 BP 195 / 98; Pulse 90; Resp 17; Pulse Ox 96% on R/A; kr2 22:20 BP 182 / 96; Pulse 70; Resp 17; Pulse Ox 95% on R/A; kr2 20:17 Body Mass Index 26.17 (60.78 kg, 152.40 cm) kr2 MDM: 20:16 Patient medically screened. 22:07 Data reviewed: vital signs, nurses notes, old medical records. Data interpreted:. ED gs course: no change discussed with daughter will need neurology appt to address weakness issues.. 03/22 20:22 Order name: CBC with Diff; Complete Time: 21:10 03/22 20:22 Order name: Basic Metabolic Panel; Complete Time: 21:10 03/22 20:32 Order name: Urine Dipstick--Ancillary (enter results); Complete Time: 21:10 03/22 21:21 Order name: CT Head Brain wo Cont; Complete Time: 21:59 Administered Medications: No medications were administered Disposition: 03/22/18 22:12 Discharged to Home. Impression: Weakness. - Condition is Stable. - Discharge Instructions: Weakness, Fatigue. - Medication Reconciliation Form, Thank You Letter, Antibiotic Education, Prescription Opioid Use form. - Follow up: Bryce Whitaker MD; When: 2 - 3 days; Reason: Re-evaluation by your physician. - Notes: decrease use of tramadol and norco Signatures: Dispatcher [employer] EDMT Tin Duarte MD MD Willow Gabriel RN RN kr2 Corrections: (The following items were deleted from the chart) 21:35 21:25 Head Brain Wo Cont ordered. [facility] 22:51 22:12 03/22/2018 22:12 Discharged to Home. Impression: Weakness. Condition is Stable. kr2 Forms are Medication Reconciliation Form, Thank You Letter, Antibiotic Education, Prescription Opioid Use. Follow up: Bryce Whitaker; When: 2 - 3 days; Reason: Re-evaluation by your physician. gs
--- NOTE | 2018-03-22 22:12 | ER ---
Nurse's Notes [facility] Name: Francisco Javier Barnard Age: 67 yrs Sex: Male : 1950 Arrival Date: 03/22/2018 Time: 19:55 Bed 25 Private MD: Diagnosis: Weakness Presentation: 03/22 19:58 Presenting complaint: EMS states: patient completed dialysis and per dialysis staff he kr2 became very unsteady when attempting to move around with his walker. He was seen at this ER on Tuesday and Tuesday for the same complaints. The family reports he takes 3 different pain medications including [place], Tramadol and another they do not know the name of. He had approximately 1.79 liters of fluid removed during dialysis today and is blood pressure prior to leaving was 200/100. Transition of care: Dialysis. Onset of symptoms was March 22, 2018 at 19:45. Risk Assessment: Do you want to hurt yourself or someone else? Patient reports no desire to harm self or others. Initial Sepsis Screen: Does the patient meet any 2 criteria? No. Patient's initial sepsis screen is negative. Does the patient have a suspected source of infection? No. Patient's initial sepsis screen is negative. Care prior to arrival: Medication(s) given: Tylenol, 650 mg. 19:58 Method Of Arrival: EMS: [facility] kr2 19:58 Acuity: AUDRA 4 kr2 Triage Assessment: 20:18 General: Appears in no apparent distress. comfortable, well groomed, well developed, kr2 well nourished, Behavior is calm, cooperative, appropriate for age. Pain: Denies pain. Historical: - Allergies: 20:15 No Known Allergies; kr2 - Home Meds: 20:15 aspirin 81 mg Oral chew 1 tab once daily [Active]; atorvastatin 20 mg oral tab kr2 [Active]; metoprolol tartrate 25 mg Oral tab 1 tab 2 times per day [Active]; sertraline 25 mg Oral tab 1 tab once daily [Active]; terazosin 2 mg Oral cap 1 cap once daily [Active]; pantoprazole 40 mg Oral TbEC 1 tab 2 times per day [Active]; furosemide 80 mg oral tab 2 times per day [Active]; gabapentin 300 mg oral cap 1 cap 3 times per day [Active]; hydralazine 10 mg Oral tab 1 tab TID [Active]; hydrocortisone 10 mg Oral tab 1 tab once daily [Active]; metoclopramide HCl 10 mg Oral tab 1 tab TID [Active]; tramadol 50 mg Oral tab 1 tab every 4 hours [Active]; Rapamune 1 mg oral tab 2 tabs once daily [Active]; 20:17 [place] 5-325 mg Oral tab 1 tab 4 times per day as needed for pain [Active]; Calcium kr2 Carbonate Oral [Active]; - PMHx: 20:15 Diabetes - IDDM; Dialysis; ESRD; Hypertension; kr2 - PSHx: 20:15 Kidney transplant; fistula to left arm; kr2 - Immunization history:: Adult Immunizations unknown. - Social history:: Smoking status: Patient/guardian denies using tobacco. - Ebola Screening: : No symptoms or risks identified at this time. Screenin:03 Abuse screen: Denies threats or abuse. Denies injuries from another. Nutritional kr2 screening: No deficits noted. Tuberculosis screening: No symptoms or risk factors identified. Fall Risk None identified. Assessment: 19:55 General: Appears in no apparent distress. comfortable, well groomed, well developed, kr2 well nourished, Behavior is calm, cooperative, appropriate for age. Pain: Denies pain. Neuro: Level of Consciousness is awake, alert, obeys commands, Oriented to person, place, time, situation, [employer] T[employer] Technician are equal bilaterally Gait is unsteady, Speech is normal, Facial symmetry appears normal, Pupils are PERRLA, Intact Reports weakness. Cardiovascular: Capillary refill < 3 seconds in bilateral fingers Patient's skin is warm and dry. Dialysis shunt: in the left arm, with palpable thrill, with no edema, no bleeding noted. Respiratory: Airway is patent Respiratory effort is even, unlabored, Respiratory pattern is regular, symmetrical. GI: Abdomen is flat, non-distended. : Urine is clear. EENT: Oral mucosa is moist. Derm: Skin is healthy with good turgor, Skin is pink, warm \T\ dry. Wound noted right foot Wound is pressure ulcer being managed by wound care, dressing is clean dry and intact. Musculoskeletal: Circulation, motion, and sensation intact. 21:46 Reassessment: Patient appears in no apparent distress at this time. Patient and/or kr2 family updated on plan of care and expected duration. Pain level reassessed. Patient is alert, oriented x 3, equal unlabored respirations, skin warm/dry/pink. Patient denies pain at this time. 22:16 Reassessment: Patient appears in no apparent distress at this time. Patient and/or kr2 family updated on plan of care and expected duration. Pain level reassessed. Patient is alert, oriented x 3, equal unlabored respirations, skin warm/dry/pink. Called patient's daughter and gave her discharge instructions. States she will have her sister come to pick the patient up. Vital Signs: 20:17 BP 157 / 83; Pulse 84; Resp 17; Temp 98.4; Pulse Ox 97% on R/A; Weight 60.78 kg; Height kr2 5 ft. (152.40 cm); Pain 0/10; 21:47 BP 195 / 98; Pulse 90; Resp 17; Pulse Ox 96% on R/A; kr2 22:20 BP 182 / 96; Pulse 70; Resp 17; Pulse Ox 95% on R/A; kr2 20:17 Body Mass Index 26.17 (60.78 kg, 152.40 cm) kr2 ED Course: 19:55 Patient arrived in ED. kr2 19:57 Tin Duarte MD is Attending Physician. gs 20:03 Triage completed. kr2 20:18 Arm band placed on right wrist. kr2 20:19 Patient has correct armband on for positive identification. Bed in low position. Call kr2 light in reach. Side rails up X 1. Pulse ox on. NIBP on. Door closed. Warm blanket given. Head of bed elevated. 20:32 Willow Gabriel, MELISA is Primary Nurse. kr2 20:42 Inserted saline lock: 24 gauge in right forearm, using aseptic technique. Blood kr2 collected. 21:[address] nj 21:34 CT Head Brain wo Cont In Process Unspecified. EDMS 21:38 CT completed. Patient tolerated procedure well. Patient moved back from CT. kc3 22:12 Bryce Whitaker MD is Referral Physician. gs 22:48 No provider procedures requiring assistance completed. IV discontinued, intact, kr2 bleeding controlled, No redness/swelling at site. Pressure dressing applied. Administered Medications: No medications were administered Outcome: 22:12 Discharge ordered by . gs 22:48 Discharged to home via wheelchair, with family. kr2 22:48 Condition: good 22:48 Discharge instructions given to patient, family, Instructed on discharge instructions, follow up and referral plans. decreasing use of Tramadol and [place] Demonstrated understanding of instructions, follow-up care, decreasing use of Tramadol and Ultram 22:51 Patient left the ED. kr2 Signatures: Dispatcher [employer] EDMS Edis Wiseman Gregory, MD MD gs Reaves, Karey, RN RN kr2 Salma Nguyen3
[2018-03-22 22:54] VITALS: TEMP 98.4
[2018-03-22 22:56] VITALS: BP 182/96; O2SAT 95
== END 2018-03-22 22:51 | disposition home or self-care (01) ==
LOC: ER 19:53
DX: R53.1 Weakness (principal); I12.0 Hypertensive chronic kidney disease with stage 5 chronic kidney disease or end stage renal disease; E11.22 Type 2 diabetes mellitus with diabetic chronic kidney disease; N18.6 End stage renal disease; Z99.2 Dependence on renal dialysis; Z94.0 Kidney transplant status; Z79.4 Long term (current) use of insulin
CPT/HCPCS: 36415; 70450; 80048; 81003; 85025; 99284

== ENCOUNTER 2018-03-24 00:28 | Emergency (ER) | payer OTHER ==
[2018-03-24] MEDS ORDERED: D50W 25 GM/50 ML SYRINGE IV ONE ×2 (00:39→03:41)
[2018-03-24] MEDS ORDERED: D5W 1,000 ML IV ONE (00:45)
[2018-03-24 00:51] LABS: Arterial Blood Carboxyhemoglob 0.8 % (0-1.5); Blood Gas Oxyhemoglobin 93.3 % (94-97)
[2018-03-24] MEDS ORDERED: NA CHLORIDE 0.9% 1,000 ML ONE (00:56)
[2018-03-24 00:59] LABS: Absolute Lymphocytes (CBC) 1.4 K/uL (0.7-4.9); Absolute Monocytes 0.5 K/uL (0.1-1.3); Absolute Neutrophil 3.2 K/uL (1.8-8.0); Basophils % 1.5 % (0-1.3); Eosinophils % 5.7 % (0-4.4); Hematocrit 38.3 % (39.6-49.0); Lymphocytes % 26.3 % (15.3-44.8); MCH 29.1 pg (27.0-35.0); MCV 90.4 fL (80-100); MPV 8.8 fL (7.6-11.3); Monocytes % 9.3 % (3.3-12.3); RBC Red Blood Cell Count 4.24 M/uL (4.33-5.43)
[2018-03-24 01:25] LABS: Albumin 3.5 g/dL (3.4-5.0); Bilirubin Direct 0.2 mg/dL (0-0.2); Bilirubin Total 0.5 mg/dL (0.2-1.0); CKMB Creatine Kinase MB 2.2 ng/mL (0.3-3.6); Magnesium 1.8 mg/dL (1.8-2.4); Potassium 3.6 mmol/L (3.5-5.1); Protein, Total 7.7 g/dL (6.4-8.2)
[2018-03-24 01:29] LABS: Protime INR 1.08
--- NOTE | 2018-03-24 02:30 | ER ---
Nurse's Notes [facility] Name: Francisco Javier Barnard Age: 67 yrs Sex: Male : 1950 Arrival Date: 03/24/2018 Time: 00:30 Bed 3 Private MD: Diagnosis: Altered mental status. Hypogltcemia. Chronic renal disease. Presentation: 03/24 00:35 Presenting complaint: EMS states: Pt was reported to have taken his insulin at 2130 tl2 tonight and was found at home unresponsive at 2330. Initial BGL was 21 and increased to 30 after 1 mg of Glucagon. EMS reports that pt is responsive to pain. Transition of care: patient was not received from another setting of care. Onset of symptoms was March 23, 2018 at 23:30. Risk Assessment: Do you want to hurt yourself or someone else? Patient reports no desire to harm self or others. Initial Sepsis Screen: Does the patient meet any 2 criteria? No. Patient's initial sepsis screen is negative. Does the patient have a suspected source of infection? No. Patient's initial sepsis screen is negative. Care prior to arrival: Medication(s) given: Glucagon. 00:35 Method Of Arrival: EMS: [facility] tl2 00:35 Acuity: AUDRA 1 tl2 Triage Assessment: 00:39 General: Appears unkempt, Behavior is unresponsive. Pain: Unable to use pain scale. tl2 Patient is unresponsive. Neuro: Level of Consciousness is unresponsive, Oriented to none. Neuro: Level of Consciousness is. Historical: - Allergies: 00:39 Unable to obtain; tl2 - Home Meds: 00:39 aspirin 81 mg Oral chew 1 tab once daily [Active]; atorvastatin 20 mg Oral tab tl2 [Active]; Calcium Carbonate Oral [Active]; furosemide 80 mg Oral tab 2 times per day [Active]; gabapentin 300 mg Oral cap 1 cap 3 times per day [Active]; hydralazine 10 mg Oral tab 1 tab TID [Active]; hydrocortisone 10 mg Oral tab 1 tab once daily [Active]; metoclopramide HCl 10 mg Oral tab 1 tab TID [Active]; metoprolol tartrate 25 mg Oral tab 1 tab 2 times per day [Active]; [place] 5-325 mg Oral tab 1 tab 4 times per day as needed for pain [Active]; pantoprazole 40 mg Oral TbEC 1 tab 2 times per day [Active]; Rapamune 1 mg Oral tab 2 tabs once daily [Active]; sertraline 25 mg Oral tab 1 tab once daily [Active]; terazosin 2 mg Oral cap 1 cap once daily [Active]; tramadol 50 mg Oral tab 1 tab every 4 hours [Active]; - PMHx: 00:39 Diabetes - IDDM; Dialysis; ESRD; Hypertension; tl2 - Immunization history:: Adult Immunizations up to date. - Social history:: Smoking status: unknown. - Ebola Screening: : No symptoms or risks identified at this time. Screenin:41 Abuse screen: Denies threats or abuse. Nutritional screening: No deficits noted. tl2 Tuberculosis screening: No symptoms or risk factors identified. Fall Risk IV access (20 points). Assessment: 00:46 General: Appears slender, Behavior is unresponsive. Neuro: Level of Consciousness is rv unresponsive, Oriented to none. Cardiovascular: Capillary refill < 3 seconds. Respiratory: Airway is patent. GI: No signs and/or symptoms were reported involving the gastrointestinal system. : No signs and/or symptoms were reported regarding the genitourinary system. EENT: No signs and/or symptoms were reported regarding the EENT system. Derm: Skin is intact. 00:59 Reassessment: PATIENT ON TRANSIT TO CT SCAN. rv 01:15 Reassessment: patient came back from CT scan. awaiting result. rv 01:38 Reassessment: Patient appears in no apparent distress at this time. Patient is alert, rv oriented x 3, equal unlabored respirations, skin warm/dry/pink. patient is asleep. opens eyes when stimulated. applied bear hugger. 02:52 Reassessment: report given to MAYA PEREZ OF [facility] IN [place]. AWAITING EMS FOR rv TRANSPORT. 03:29 Reassessment: Patient is alert, oriented x 3, equal unlabored respirations, skin rv warm/dry/pink. ON TRANSIT TO [facility] IN [place] VIA EMS GROUND. Vital Signs: 00:39 BP 166 / 77; Pulse 70; Resp 13; Pulse Ox 100% on 4 lpm NC; Weight 63.5 kg; Height 5 ft. tl2 5 in. (165.10 cm); 01:20 Temp 94.4(R); aa1 01:37 BP 154 / 74; Pulse 60; Resp 11; Pulse Ox 100% on 2 lpm NC; rv 02:02 BP 173 / 78; Pulse 58; Resp 14; Temp 94.1(R); Pulse Ox 100% on 4 lpm NC; aa1 02:30 BP 191 / 76; Pulse 55; Resp 14; Pulse Ox 100% on 2 lpm NC; rv 02:42 Temp 94.5(R); rv 03:29 BP 193 / 70; Pulse 55; Pulse Ox 98% on 2 lpm NC; rv 00:39 Body Mass Index 23.30 (63.50 kg, 165.10 cm) tl2 ED Course: 00:30 Patient arrived in ED. ms 00:31 Christos Palencia MD is Attending Physician. pkl 00:35 Inserted saline lock: 22 gauge in right hand, using aseptic technique. ,using aseptic aa1 technique. by Edwin Phan RN Blood collected. 00:38 Triage completed. tl2 00:39 Arm band placed on right wrist. tl2 00:41 Patient has correct armband on for positive identification. Placed in gown. Bed in low tl2 position. Call light in reach. Side rails up X2. 00:59 X-ray completed. Portable x-ray completed in exam room. Patient tolerated procedure kw well. 00:59 XRAY Chest (1 view) In Process Unspecified. EDMS 01:18 CT Head Brain wo Cont In Process Unspecified. EDMS 01:18 CT completed. Patient tolerated procedure well. Patient moved to CT via stretcher. Patient moved back from CT. 01:20 Thermoregulation: Brayan blanket applied. aa1 01:35 Notified ED physician of a critical lab result(s). glucose 48 and creat 5.7. fc 01:40 Oxygen administration via nasal cannula \T\ 4L/min. aa1 01:57 initiated a transfer with Katlin at [facility]. eb 02:[address] Tucker with ED doctor for patient transfer consulation. eb 02:21 connected from [facility] with ED doctor for patient transfer consulation. eb 02:41 administrative approval given by Katlin Peña . patient going to [address] [place] [address]. report to be eb aclled at [phone]. 03:30 No provider procedures requiring assistance completed. Patient transferred, IV remains rv in place. intact. Administered Medications: Discontinued: D5W 1000 ml IV at 100 ml/hr continuous Discontinued: NS 0.9% 1000 ml IV at 75 TKO continuous 00:38 Drug: D50W 50 ml Route: IVP; Site: right hand; aa1 01:02 Follow up: Response: Blood sugar is elevated aa1 02:39 Follow up: Response: No adverse reaction; Blood sugar is elevated rv 00:44 Drug: D5W 1000 ml Route: IV; Rate: 100 ml/hr; Site: right hand; aa1 01:05 Follow up: IV Status: Order to discontinue infusion rv 01:30 Drug: NS 0.9% 1000 ml Route: IV; Rate: 75 TKO; Site: right hand; rv 02:35 Drug: D5W 1000 ml Route: IV; Rate: TKO; Site: right hand; rv 03:41 Drug: D50W 50 ml Route: IVP; Site: right antecubital; rv 03:42 Follow up: Response: No adverse reaction rv Point of Care Testing: Blood Glucose: 00:39 Blood Glucose: 39 mg/dL; tl2 00:55 Blood Glucose: 202 mg/dL; rv 01:42 Blood Glucose: 129 mg/dL; rv 02:30 Blood Glucose: 99 mg/dL; rv 03:40 Blood Glucose: 31 mg/dL; rv Ranges: Outcome: 02:30 ER care complete, transfer ordered by . pkmitzy 03:30 Transferred to [facility], Transfer form completed. rv 03:30 Condition: stable 03:30 Discharge instructions given to family, Instructed on the need for transfer. 03:43 Patient left the ED. rv Signatures: Dispatcher [employer] EDLee Ann Allen RN RN aa1 Christos Palencia MD MD pkAdrian Tapia Felicia, RN RN Nunu Murphy ms, Kimberlee kw Knox, Taylor, RN RN tl2 Alba Yeboah Ronaldo, RN RN rv
--- NOTE | 2018-03-24 02:31 | EDPHYS ---
Physician Documentation [facility] Name: Francisco Javier Barnard Age: 67 yrs Sex: Male : 1950 Arrival Date: 03/24/2018 Time: 00:30 Bed 3 Private MD: ED Physician Christos Palencia HPI: 03/24 01:12 This 67 yrs old Male presents to ER via EMS with unknown complaint. pkl 01:12 The patient presents with decreased responsiveness. Onset: The symptoms/episode pkl began/occurred just prior to arrival. Possible causes: low blood sugar, the patient uses insulin. Associated signs and symptoms: Pertinent positives: weakness. The patient has been recently seen at the [facility] Emergency Department, this week, Seen twice in ER earlier this week.. H/O ESRD. Dialyzed Mon., Wed., Fri.. 01:20 EMS noted BS 21 at the scene. Given 1 mg Glucagon BS increased to 30.. pkl Historical: - Allergies: 00:39 Unable to obtain; tl2 - Home Meds: 00:39 aspirin 81 mg Oral chew 1 tab once daily [Active]; atorvastatin 20 mg Oral tab tl2 [Active]; Calcium Carbonate Oral [Active]; furosemide 80 mg Oral tab 2 times per day [Active]; gabapentin 300 mg Oral cap 1 cap 3 times per day [Active]; hydralazine 10 mg Oral tab 1 tab TID [Active]; hydrocortisone 10 mg Oral tab 1 tab once daily [Active]; metoclopramide HCl 10 mg Oral tab 1 tab TID [Active]; metoprolol tartrate 25 mg Oral tab 1 tab 2 times per day [Active]; [place] 5-325 mg Oral tab 1 tab 4 times per day as needed for pain [Active]; pantoprazole 40 mg Oral TbEC 1 tab 2 times per day [Active]; Rapamune 1 mg Oral tab 2 tabs once daily [Active]; sertraline 25 mg Oral tab 1 tab once daily [Active]; terazosin 2 mg Oral cap 1 cap once daily [Active]; tramadol 50 mg Oral tab 1 tab every 4 hours [Active]; - PMHx: 00:39 Diabetes - IDDM; Dialysis; ESRD; Hypertension; tl2 - Immunization history:: Adult Immunizations up to date. - Social history:: Smoking status: unknown. - Ebola Screening: : No symptoms or risks identified at this time. ROS: 01:12 Eyes: Negative for injury, pain, redness, and discharge, ENT: Negative for injury, pkl pain, and discharge, Neck: Negative for injury, pain, and swelling, Cardiovascular: Negative for chest pain, palpitations, and edema, Respiratory: Negative for shortness of breath, cough, wheezing, and pleuritic chest pain, Abdomen/GI: Negative for abdominal pain, nausea, vomiting, diarrhea, and constipation, Back: Negative for injury and pain, : Negative for injury, bleeding, discharge, and swelling, MS/Extremity: Negative for injury and deformity, Skin: Negative for injury, rash, and discoloration. 01:12 Neuro: Positive for altered mental status. Exam: 01:12 Head/Face: Normocephalic, atraumatic. Eyes: Pupils equal round and reactive to light, pkl extra-ocular motions intact. Lids and lashes normal. Conjunctiva and sclera are non-icteric and not injected. Cornea within normal limits. Periorbital areas with no swelling, redness, or edema. ENT: Nares patent. No nasal discharge, no septal abnormalities noted. Tympanic membranes are normal and external auditory canals are clear. Oropharynx with no redness, swelling, or masses, exudates, or evidence of obstruction, uvula midline. Mucous membranes moist. Neck: Trachea midline, no thyromegaly or masses palpated, and no cervical lymphadenopathy. Supple, full range of motion without nuchal rigidity, or vertebral point tenderness. No Meningismus. Chest/axilla: Normal chest wall appearance and motion. Nontender with no deformity. No lesions are appreciated. Cardiovascular: Regular rate and rhythm with a normal S1 and S2. No gallops, murmurs, or rubs. Normal PMI, no JVD. No pulse deficits. Respiratory: Lungs have equal breath sounds bilaterally, clear to auscultation and percussion. No rales, rhonchi or wheezes noted. No increased work of breathing, no retractions or nasal flaring. Abdomen/GI: Soft, non-tender, with normal bowel sounds. No distension or tympany. No guarding or rebound. No evidence of tenderness throughout. Back: No spinal tenderness. No costovertebral tenderness. Full range of motion. Skin: Warm, dry with normal turgor. Normal color with no rashes, no lesions, and no evidence of cellulitis. MS/ Extremity: Pulses equal, no cyanosis. Neurovascular intact. Full, normal range of motion. 01:12 Neuro: Orientation: unable to test, the patient is comatose, Cranial nerves: unable to test, the patient is comatose, Motor: unable to test, the patient is comatose. Vital Signs: 00:39 BP 166 / 77; Pulse 70; Resp 13; Pulse Ox 100% on 4 lpm NC; Weight 63.5 kg; Height 5 ft. tl2 5 in. (165.10 cm); 01:20 Temp 94.4(R); aa1 01:37 BP 154 / 74; Pulse 60; Resp 11; Pulse Ox 100% on 2 lpm NC; rv 02:02 BP 173 / 78; Pulse 58; Resp 14; Temp 94.1(R); Pulse Ox 100% on 4 lpm NC; aa1 02:30 BP 191 / 76; Pulse 55; Resp 14; Pulse Ox 100% on 2 lpm NC; rv 02:42 Temp 94.5(R); rv 03:29 BP 193 / 70; Pulse 55; Pulse Ox 98% on 2 lpm NC; rv 00:39 Body Mass Index 23.30 (63.50 kg, 165.10 cm) tl2 MDM: 00:31 Patient medically screened. pkl 02:27 Data reviewed: vital signs, nurses notes, lab test result(s), EKG, radiologic studies, pkl CT scan, plain films. 03/24 00:31 Order name: glucometer results - FOR PT WITH NO ID; Complete Time: 01:41 ms 03/24 00:38 Order name: Basic Metabolic Panel; Complete Time: :35 pkl 03/24 00:38 Order name: CBC with Diff; Complete Time: 01:25 pkl 03/24 00:38 Order name: Ckmb; Complete Time: :35 pkl 03/24 00:38 Order name: CPK; Complete Time: : pkl 03/24 00:38 Order name: LFT's; Complete Time: 01:35 pkl 03/24 00:38 Order name: Magnesium; Complete Time: 01:35 pkl 03/24 00:38 Order name: NT PRO-BNP; Complete Time: :35 pkl 03/24 00:38 Order name: PT-INR; Complete Time: 01:35 pkl 03/24 00:38 Order name: Ptt, Activated; Complete Time: :35 pkl 03/24 00:38 Order name: Troponin (emerg Dept Use Only); Complete Time: 01:25 pkl 03/24 00:38 Order name: XRAY Chest (1 view) pkl 07 00:38 Order name: CT Head Brain wo Cont pkl 03/24 00:39 Order name: ABG; Complete Time: 01: pkl 03/24 00:38 Order name: EKG; Complete Time: 00:39 pkl 03/24 00:38 Order name: Cardiac monitoring; Complete Time: 00:41 pkl 03/24 00:38 Order name: EKG - Nurse/Tech; Complete Time: 00:41 pkl 03/24 00:38 Order name: IV Saline Lock; Complete Time: 00:41 pkl 03/24 00:38 Order name: Labs collected and sent; Complete Time: 00:41 pkl 03/24 00:38 Order name: O2 Per Protocol; Complete Time: 00:41 pkl 03/24 00:38 Order name: O2 Sat Monitoring; Complete Time: 00:41 pkl 03/24 01:27 Order name: Accucheck: q hourly; Complete Time: 01:44 pkl Administered Medications: Discontinued: D5W 1000 ml IV at 100 ml/hr continuous Discontinued: NS 0.9% 1000 ml IV at 75 TKO continuous 00:38 Drug: D50W 50 ml Route: IVP; Site: right hand; aa1 01:02 Follow up: Response: Blood sugar is elevated aa1 02:39 Follow up: Response: No adverse reaction; Blood sugar is elevated rv 00:44 Drug: D5W 1000 ml Route: IV; Rate: 100 ml/hr; Site: right hand; aa1 01:05 Follow up: IV Status: Order to discontinue infusion rv 01:30 Drug: NS 0.9% 1000 ml Route: IV; Rate: 75 TKO; Site: right hand; rv 02:35 Drug: D5W 1000 ml Route: IV; Rate: TKO; Site: right hand; rv 03:41 Drug: D50W 50 ml Route: IVP; Site: right antecubital; rv 03:42 Follow up: Response: No adverse reaction rv Point of Care Testing: Blood Glucose: 00:39 Blood Glucose: 39 mg/dL; tl2 00:55 Blood Glucose: 202 mg/dL; rv 01:42 Blood Glucose: 129 mg/dL; rv 02:30 Blood Glucose: 99 mg/dL; rv 03:40 Blood Glucose: 31 mg/dL; rv Ranges: Critical Glucose Levels:Adult <50 mg/dl or >400 mg/dl <40 mg/dl or >180 mg/dl Disposition: 02:27 Critical Care:. pkl Disposition: 03/24/18 02:30 Transfer ordered to [facility]. Diagnosis is Altered mental status. Hypogltcemia. Chronic renal disease.. - Reason for transfer: Higher level of care. - Accepting physician is Dr. Hernandez. - Condition is Fair. - Problem is new. - Symptoms are unchanged. Signatures: Dispatcher [employer] EDLee Ann Allen RN RN aa1 Christos Palencia MD MD pkl Nava Johnston RN RN tl2 Fernie Ibrahim RN RN rv Corrections: (The following items were deleted from the chart) 00:42 00:38 Urine Dipstick-Ancillary ordered. pkl aa1 03:43 02:30 03/24/2018 02:30 Transfer ordered to [facility]. Diagnosis is Altered mental rv status. Hypogltcemia. Chronic renal disease.. Reason for transfer: Higher level of care. Accepting physician is Dr. Hernandez. Condition is Fair. Problem is new. Symptoms are unchanged. pkl
[2018-03-24 03:52] VITALS: TEMP 94.5
[2018-03-24 03:53] VITALS: BP 193/70; O2SAT 98
--- NOTE | 2018-03-24 08:10 | RAD REPORT ---
EXAM DESCRIPTION: CT - Head Brain Wo Cont - 03/24/2018 5:18 am CLINICAL HISTORY: altered mental status Drowsiness COMPARISON: Head Brain Wo Cont dated 03/22/2018; HEAD BRAIN W O CONTRAST dated 11/14/2009 TECHNIQUE: All CT scans are performed using dose optimization technique as appropriate and may inclu de automated exposure control or mA/KV adjustment according to patient size. FINDINGS: No intracranial hemorrhage, hydrocephalus or extra-axial fluid collection.Moderate general ized brain atrophy is present with moderate periventricular and deep white matter chronic microvascul ar ischemic changes.No areas of brain edema or evidence of midline shift. The paranasal sinuses and mastoids are clear. The calvarium is intact. IMPRESSION: No acute intracranial abnormality. A preliminary written report was provided at the time of the study, and the report was reviewed prio r to final dictation.
--- NOTE | 2018-03-24 08:45 | RAD REPORT ---
EXAM DESCRIPTION: RAD - Chest Single View - 03/24/2018 1:02 am CLINICAL HISTORY: altered mental status Chest pain. COMPARISON: Chest Single View dated 03/20/2018; Chest Pa And Lat (2 Views) dated 09/30/2017; Chest Sing le View dated 09/28/2017; Chest Single View dated 02/17/2017 FINDINGS: Portable technique limits examination quality. Bilateral pulmonary opacities are mildly progressive since the comparative radiograph. The heart is m ildly enlarged in size. Right-sided catheter tubing is stable. No displaced fractures. IMPRESSION: Mild worsening in lung aeration since prior study may indicate mild worsening of CHF/ vo lume overload.
--- NOTE | 2018-03-24 12:45 | EKG ---
Test Date: 2018-03-24 Test Time: 00:36:35 Eye Care Professional: MRA MEASUREMENT RESULTS: Intervals: Rate: 69 WA: 346 QRSD: 102 QT: 438 QTc: 469 [place]: P: 32 WA: 346 QRS: 80 T: 232 INTERPRETIVE STATEMENTS: Sinus rhythm with 1st degree AV block ST abnormality, possible inferior subendocardial injury Abnormal ECG Compared to ECG 03/20/2018 20:20:08 Possible ischemia no longer present ST (T wave) deviation still present Electronically Signed On 03-24-18 12:44:18 CDT by Janes Oliveira
== END 2018-03-24 03:43 | disposition short-term general hospital (02) ==
LOC: ER 00:28
DX: E11.649 Type 2 diabetes mellitus with hypoglycemia without coma (principal); E11.22 Type 2 diabetes mellitus with diabetic chronic kidney disease; I12.0 Hypertensive chronic kidney disease with stage 5 chronic kidney disease or end stage renal disease; N18.6 End stage renal disease; Z79.82 Long term (current) use of aspirin; Z99.2 Dependence on renal dialysis
CPT/HCPCS: 36415; 70450; 71045; 80048; 80076; 82550; 82553; 82805; 82962 ×5; 83735; 83880; 84484; 85025; 85610; 85730; 93005; 99291; 99292; J7030

== ENCOUNTER 2018-04-30 15:00 | Emergency (ER) | payer OTHER ==
[2018-04-30] MEDS ORDERED: ONDANSETRON 4 MG/2 ML VIAL ONE (15:58)
[2018-04-30] MEDS ORDERED: FENTANYL CITR 100 MCG/2 ML ONE (15:58)
[2018-04-30 16:16] LABS: Absolute Lymphocytes (CBC) 1.5 K/uL (0.7-4.9); Absolute Monocytes 0.5 K/uL (0.1-1.3); Absolute Neutrophil 2.3 K/uL (1.8-8.0); Hematocrit 41.5 % (39.6-49.0); Lymphocytes % 30.1 % (15.3-44.8); MCH 29.3 pg (27.0-35.0); MCV 91.2 fL (80-100); MPV 8.9 fL (7.6-11.3); Monocytes % 10.1 % (3.3-12.3); RBC Red Blood Cell Count 4.55 M/uL (4.33-5.43)
[2018-04-30 16:34] LABS: Potassium 4.6 mmol/L (3.5-5.1)
[2018-04-30] MEDS ORDERED: PANTOPRAZOLE 40 MG INJ ONE (16:35)
[2018-04-30 17:16] LABS: Urine Amorphous Sediment 1+ /HPF (NONE SEEN); Urine Bacteria <20 /HPF (NONE SEEN); Urine Culture Reflex Order REFLEXED; Urine Sperm PRESENT (NONE SEEN)
[2018-04-30 17:20] LABS: Urine Blood TRACE (NEG); Urine Glucose 2+ (NEG); Urine Protein 3+ (NEG); Urine Specific Gravity 1.025 (1.005-1.030); Urine pH 5.5 (5.0-7.0)
[2018-04-30] MEDS ORDERED: INSULIN -REGULAR HUMAN 50 UNIT/0.5 ML ML ONE (17:27)
--- NOTE | 2018-04-30 18:39 | ER ---
Nurse's Notes [facility] Name: Francisco Javier Barnard Age: 67 yrs Sex: Male : 1950 Arrival Date: 04/30/2018 Time: 15:02 Bed 28 Private MD: Everardo Oconnell Diagnosis: Other chronic pain-Back;Diabetes mellitus due to underlying condition with hyperglycemia Presentation: 04/30 15:07 Presenting complaint: Patient states: Epigastric abdominal pain and lower back pain for aj1 the past week. Denies N/V/D. Denies fever. Denies dysuria. Transition of care: patient was not received from another setting of care. Onset of symptoms was April 23, 2018. Risk Assessment: Do you want to hurt yourself or someone else?. Initial Sepsis Screen: Does the patient meet any 2 criteria? No. Patient's initial sepsis screen is negative. Does the patient have a suspected source of infection? Yes: Acute abdominal pain. Care prior to arrival: None. 15:07 Method Of Arrival: Wheelchair aj 15:07 Acuity: AUDRA 3 aj1 Triage Assessment: 15:15 General: Appears in no apparent distress. uncomfortable, Behavior is calm, cooperative, aj1 appropriate for age. Pain: Complains of pain in low back area and epigastric area Pain currently is 10 out of 10 on a pain scale. Neuro: Level of Consciousness is awake, alert, obeys commands. Cardiovascular: Patient's skin is warm and dry. Respiratory: Airway is patent Respiratory effort is even, unlabored, Respiratory pattern is regular, symmetrical. Musculoskeletal: Range of motion: intact in all extremities. Historical: - Allergies: 15:15 NKDA; aj1 - Home Meds: 15:15 aspirin 81 mg Oral chew 1 tab once daily [Active]; hydralazine 10 mg Oral tab 1 tab TID aj1 [Active]; pantoprazole 40 mg Oral TbEC 1 tab 2 times per day [Active]; atorvastatin 20 mg Oral tab [Active]; hydrocortisone 10 mg Oral tab 1 tab once daily [Active]; gabapentin 300 mg Oral cap 1 cap 3 times per day [Active]; terazosin 2 mg Oral cap 1 cap once daily [Active]; [place] 5-325 mg Oral tab 1 tab 4 times per day as needed for pain [Active]; carvedilol 25 mg oral tab 1 tab at bedtime [Active]; - PMHx: 15:15 Diabetes - IDDM; Dialysis; ESRD; Hypertension; aj1 - Immunization history:: Flu vaccine is up to date. - Social history:: Smoking status: Patient/guardian denies using tobacco. - Ebola Screening: : Patient denies travel to an Ebola-affected area in the 21 days before illness onset. Screenin:23 Abuse screen: Denies threats or abuse. Denies injuries from another. Nutritional rv screening: No deficits noted. Tuberculosis screening: No symptoms or risk factors identified. Fall Risk None identified. Assessment: 16:10 General: Appears in no apparent distress. comfortable, Behavior is calm, cooperative, rv appropriate for age. 16:10 Pain: Complains of pain in back. Neuro: Level of Consciousness is awake, alert, obeys rv commands, Oriented to person, place, time, situation. Cardiovascular: Capillary refill < 3 seconds. Respiratory: Airway is patent. GI: No signs and/or symptoms were reported involving the gastrointestinal system. : No signs and/or symptoms were reported regarding the genitourinary system. EENT: No signs and/or symptoms were reported regarding the EENT system. Derm: Skin is intact. Vital Signs: 15:15 BP 162 / 118; Pulse 62; Resp 18; Temp 98.2(TE); Pulse Ox 96% on R/A; Weight 61.23 kg aj1 (R); Height 5 ft. 2 in. (157.48 cm) (R); Pain 10/10; 16:24 BP 136 / 38 Supine; Pulse 61; rv 16:24 BP 131 / 51 Sitting; Pulse 62; rv 16:24 BP 107 / 47 Standing; Pulse 61; rv 17:13 BP 119 / 47; rv 19:05 BP 116 / 81; rv 15:15 Body Mass Index 24.69 (61.23 kg, 157.48 cm) aj1 ED Course: 15:02 Patient arrived in ED. sb2 15:02 Everardo Oconnell MD is Private Physician. sb2 15:12 Triage completed. aj1 15:15 Arm band placed on Patient placed in an exam room. aj1 15:22 Joshua Moise PA is PHCP. cp 15:22 Jose Orlando MD is Attending Physician. cp 16:10 Inserted saline lock: 20 gauge in right antecubital area, using aseptic technique. rv 16:23 Patient has correct armband on for positive identification. Bed in low position. Call rv light in reach. Side rails up X 1. Adult w/ patient. Pulse ox on. NIBP on. 16:40 Notified Nurse Practitioner and/or Physician Structural Fitter of a critical lab result(s), hb creatinine 10.2. 19:06 No provider procedures requiring assistance completed. IV discontinued, bleeding rv controlled, No redness/swelling at site. Pressure dressing applied. Administered Medications: 16:10 Drug: fentaNYL (PF) 25 mcg Route: IVP; Site: right antecubital; rv 17:04 Follow up: Response: Pain is decreased rv 16:10 Drug: Zofran 4 mg Route: IVP; Site: right antecubital; rv 16:45 Follow up: Response: No adverse reaction rv 16:30 Drug: ProTONIX 40 mg Route: IVP; Site: right antecubital; rv 17:04 Follow up: Response: No adverse reaction rv 17:26 Drug: Insulin Regular Human 10 units {Co-Signature: kr2 (Willow Gabriel RN).} Route: IVP; rv Site: right antecubital; 18:17 Follow up: Response: No adverse reaction rv Point of Care Testing: Blood Glucose: 18:16 Blood Glucose: 135 mg/dL; rv Ranges: Outcome: 18:39 Discharge ordered by . cp 19:06 Discharged to home ambulatory. rv 19:06 Condition: good 19:06 Discharge instructions given to patient, Instructed on discharge instructions. 19:06 Patient left the ED. rv Signatures: Ute Cherry RN RN aj1 Joshua Moise PA PA cp Baxter, Heather, RN RN Maryjane Marie sb2 Fernie Ibrahim RN RN rv Willow Gabriel RN kr2
--- NOTE | 2018-04-30 18:39 | EDPHYS ---
Physician Documentation [facility] Name: Francisco Javier Barnard Age: 67 yrs Sex: Male : 1950 Arrival Date: 04/30/2018 Time: 15:02 Bed 28 Private MD: Everardo Oconnell ED Physician Jose Orlando HPI: 04/30 15:39 This 67 yrs old Male presents to ER via Wheelchair with complaints of Back cp Pain. 15:39 The patient presents with pain that is chronic, with no known mechanism of injury. cp 15:39 The symptoms are located in the low back area and mid back area. Onset: The cp symptoms/episode began/occurred 2 year(s) ago. Associated signs and symptoms: Pertinent positives: epigastric abdominal pain and low blood pressure, Pertinent negatives: chest pain, constipation, fever, incontinence, numbness, tingling, weakness. Severity of symptoms: in the emergency department the symptoms are unchanged, despite home interventions. The patient has experienced similar episodes in the past, multiple times. Historical: - Allergies: 15:15 NKDA; aj1 - Home Meds: 15:15 aspirin 81 mg Oral chew 1 tab once daily [Active]; hydralazine 10 mg Oral tab 1 tab TID aj1 [Active]; pantoprazole 40 mg Oral TbEC 1 tab 2 times per day [Active]; atorvastatin 20 mg Oral tab [Active]; hydrocortisone 10 mg Oral tab 1 tab once daily [Active]; gabapentin 300 mg Oral cap 1 cap 3 times per day [Active]; terazosin 2 mg Oral cap 1 cap once daily [Active]; [place] 5-325 mg Oral tab 1 tab 4 times per day as needed for pain [Active]; carvedilol 25 mg oral tab 1 tab at bedtime [Active]; - PMHx: 15:15 Diabetes - IDDM; Dialysis; ESRD; Hypertension; aj1 - Immunization history:: Flu vaccine is up to date. - Social history:: Smoking status: Patient/guardian denies using tobacco. - Ebola Screening: : Patient denies travel to an Ebola-affected area in the 21 days before illness onset. ROS: 15:45 Constitutional: Negative for body aches, chills, fever, poor PO intake. cp 15:45 Eyes: Negative for injury, pain, redness, and discharge. cp 15:45 ENT: Negative for drainage from ear(s), ear pain, sore throat, difficulty swallowing, difficulty handling secretions. 15:45 Cardiovascular: Negative for chest pain, edema, palpitations. 15:45 Respiratory: Negative for cough, shortness of breath, wheezing. 15:45 Abdomen/GI: Positive for abdominal pain, of the epigastric area, Negative for nausea, vomiting, and diarrhea, constipation, anorexia, black/tarry stool, rectal bleeding. 15:45 Back: Positive for pain at rest, of the low back area and mid back area, Negative for radiated pain. 15:45 : Negative for urinary symptoms, testicular pain 15:45 MS/extremity: Negative for injury or acute deformity, paresthesias. 15:45 Skin: Negative for cellulitis, rash. 15:45 Neuro: Negative for altered mental status, dizziness, headache, numbness, syncope, near syncope, weakness. 15:45 All other systems are negative. Exam: 15:50 Constitutional: The patient appears in no acute distress, alert, awake, cp non-diaphoretic, non-toxic, well developed, well nourished. 15:50 Head/Face: Normocephalic, atraumatic. cp 15:50 Eyes: Periorbital structures: appear normal, Conjunctiva: normal, no exudate, no injection, Sclera: no appreciated abnormality, Lids and lashes: appear normal, bilaterally. 15:50 ENT: External ear(s): are unremarkable, Nose: is normal, Mouth: Lips: moist, Oral mucosa: moist, Posterior pharynx: is normal, airway is patent. 15:50 Neck: ROM/movement: is normal, is supple, without pain, no range of motions limitations, no meningismus, no nuchal rigidity. 15:50 Chest/axilla: Inspection: normal, Palpation: is normal, no crepitus, no tenderness. 15:50 Cardiovascular: Rate: normal, Rhythm: regular. 15:50 Respiratory: the patient does not display signs of respiratory distress, Respirations: normal, no use of accessory muscles, no retractions, no splinting, no tachypnea, labored breathing, is not present, Breath sounds: are clear throughout, no decreased breath sounds, no stridor, no wheezing. 15:50 Abdomen/GI: Inspection: abdomen appears normal, Bowel sounds: active, all quadrants, Palpation: soft, in all quadrants, nontender, in all quadrants, rebound tenderness, is not appreciated, voluntary guarding, is not appreciated, involuntary guarding, is not appreciated. 15:50 Back: pain, that is moderate, of the low back area and mid back area, ROM is normal, CVA tenderness, is absent, vertebral tenderness, is not appreciated. 15:50 Skin: cellulitis, is not appreciated, no rash present. 15:50 Neuro: Orientation: to person, place \T\ time. Mentation: lucid, able to follow commands, Cerebellar function: is grossly normal, Motor: moves all fours, strength is normal, Sensation: no obvious gross deficits, Gait: is steady, Deep tendon reflexes are 2+ (normal) in the right patellar, right Achilles, left patellar and left Achilles. Vital Signs: 15:15 BP 162 / 118; Pulse 62; Resp 18; Temp 98.2(TE); Pulse Ox 96% on R/A; Weight 61.23 kg aj1 (R); Height 5 ft. 2 in. (157.48 cm) (R); Pain 10/10; 16:24 BP 136 / 38 Supine; Pulse 61; rv 16:24 BP 131 / 51 Sitting; Pulse 62; rv 16:24 BP 107 / 47 Standing; Pulse 61; rv 17:13 BP 119 / 47; rv 19:05 BP 116 / 81; rv 15:15 Body Mass Index 24.69 (61.23 kg, 157.48 cm) aj1 MDM: 15:23 Patient medically screened. cp 16:00 Differential diagnosis: chronic back pain, Fatigue Fracture Neoplasm Pyelonephritis cp Ureterolithiasis vertebral fracture, GERD. 18:37 Data reviewed: vital signs, nurses notes, lab test result(s), and as a result, I will cp discharge patient. 18:37 Counseling: I had a detailed discussion with the patient and/or guardian regarding: the cp historical points, exam findings, and any diagnostic results supporting the discharge/admit diagnosis, lab results, to return to the emergency department if symptoms worsen or persist or if there are any questions or concerns that arise at home. Response to treatment: the patient's symptoms have markedly improved after treatment. 04/30 15:39 Order name: [facility]; Complete Time: 17:02 cp 04/30 17:31 Interpretation: Normal except: NA 135; CO2 18; GLUC 321; BUN 63; CRE 10.20; GFR 5; CA cp 7.0. 04/30 15:39 Order name: Urine Microscopic Only; Complete Time: 17:30 cp 04/30 17:30 Interpretation: Normal except: UWBC 10-20; URBC 5-10; SQEPI 5-10; SPERM PRESENT. cp 04/30 15:39 Order name: CBC with Diff; Complete Time: 17:02 cp 04/30 17:31 Interpretation: Normal except: HGB 13.3; RDW 17.9; EOSINOPHIL % 11.0; BASO% 2.0. cp 04/30 16:51 Order name: Urine Dipstick--Ancillary (enter results); Complete Time: 17:30 eb 08 17:31 Interpretation: Normal except: UBLD TRACE; UPROT 3+. cp 04/30 17:18 Order name: Urine Culture EDMS 04/30 15:39 Order name: IV; Complete Time: 16:22 cp 04/30 15:39 Order name: Urine Dipstick-Ancillary (obtain specimen); Complete Time: 17:04 cp 04/30 15:39 Order name: Orthostatics; Complete Time: 16:21 cp 04/30 17:57 Order name: Accucheck Blood Glucose; Complete Time: 18:16 cp Administered Medications: 16:10 Drug: fentaNYL (PF) 25 mcg Route: IVP; Site: right antecubital; rv 17:04 Follow up: Response: Pain is decreased rv 16:10 Drug: Zofran 4 mg Route: IVP; Site: right antecubital; rv 16:45 Follow up: Response: No adverse reaction rv 16:30 Drug: ProTONIX 40 mg Route: IVP; Site: right antecubital; rv 17:04 Follow up: Response: No adverse reaction rv 17:26 Drug: Insulin Regular Human 10 units {Co-Signature: kr2 (Willow Gabriel RN).} Route: IVP; rv Site: right antecubital; 18:17 Follow up: Response: No adverse reaction rv Point of Care Testing: Blood Glucose: 18:16 Blood Glucose: 135 mg/dL; rv Ranges: Critical Glucose Levels:Adult <50 mg/dl or >400 mg/dl <40 mg/dl or >180 mg/dl Disposition: 04/30/18 18:39 Discharged to Home. Impression: Other chronic pain - Back, Diabetes mellitus due to underlying condition with hyperglycemia. - Condition is Stable. - Discharge Instructions: Chronic Pain, Blood Glucose Monitoring, Adult, Diabetes Mellitus and Food. - Medication Reconciliation Form, Thank You Letter, Antibiotic Education, Prescription Opioid Use form. - Follow up: Private Physician; When: 1 - 2 days; Reason: Recheck today's complaints. - Problem is chronic. - Symptoms have improved. Addendum: 05/09/2018 08:25 Co-signature as Attending Physician, Jose Orlando MD. r n Signatures: Dispatcher [employer] EDMS Ute Cherry RN RN aj1 Jose Orlando MD MD rn Joshua Moise PA PA cp Fernie Ibrahim RN RN rv Willow Gabriel RN kr2 Corrections: (The following items were deleted from the chart) 04/30 17:31 17:06 Normal except: NA 135; CO2 18; GLUC 321; BUN 63; CRE 10.20; GFR 5. cp cp 19:06 18:39 04/30/2018 18:39 Discharged to Home. Impression: Other chronic pain - Back; rv Diabetes mellitus due to underlying condition with hyperglycemia. Condition is Stable. Forms are Medication Reconciliation Form, Thank You Letter, Antibiotic Education, Prescription Opioid Use. Follow up: Private Physician; When: 1 - 2 days; Reason: Recheck today's complaints. Problem is chronic. Symptoms have improved. cp
[2018-04-30 19:24] VITALS: TEMP 98.2; O2SAT 96
[2018-04-30 19:28] VITALS: BP 116/81
== END 2018-04-30 19:06 | disposition home or self-care (01) ==
LOC: ER 15:00
DX: E11.22 Type 2 diabetes mellitus with diabetic chronic kidney disease (principal); I12.0 Hypertensive chronic kidney disease with stage 5 chronic kidney disease or end stage renal disease; N18.6 End stage renal disease; E08.65 Diabetes mellitus due to underlying condition with hyperglycemia; Z99.2 Dependence on renal dialysis; Z79.82 Long term (current) use of aspirin
CPT/HCPCS: 36415; 80048; 85025; 87086; 87088; C9113; J2405; J3010; 81003; 81015; 82962; 96374; 96375; 99284

== ENCOUNTER 2018-05-19 15:45 | Emergency (ER) | payer OTHER ==
--- NOTE | 2018-05-19 16:26 | RAD REPORT ---
EXAM DESCRIPTION: RALPHChest Single View05/19/2018 4:11 pm CLINICAL HISTORY: shortness of breath COMPARISON: Chest Single View dated 05/16/2018; FINDINGS: The lungs appear clear of acute infiltrate. The heart is normal size IMPRESSION: No acute abnormalities displayed
[2018-05-19 17:03] LABS: Absolute Monocytes 0.4 K/uL (0.1-1.3); Absolute Neutrophil 2.6 K/uL (1.8-8.0); Basophils % 1.9 % (0-1.3); Eosinophils % 6.8 % (0-4.4); Lymphocytes % 22.5 % (15.3-44.8); MCH 29.5 pg (27.0-35.0); MCV 89.7 fL (80-100); MPV 8.5 fL (7.6-11.3); Monocytes % 9.1 % (3.3-12.3); RBC Red Blood Cell Count 4.68 M/uL (4.33-5.43)
[2018-05-19 17:21] LABS: Albumin 3.1 g/dL (3.4-5.0); Bilirubin Direct 0.2 mg/dL (0-0.2); Bilirubin Total 0.5 mg/dL (0.2-1.0); Magnesium 1.9 mg/dL (1.8-2.4); Potassium 4.3 mmol/L (3.5-5.1); Protein, Total 7.6 g/dL (6.4-8.2); Protime INR 0.94; Troponin (Emerg Dept Use Only) 0.02 ng/mL (0.0-0.045)
[2018-05-19] MEDS ORDERED: NA CHLORIDE 0.9% 500 ML ONE (18:00)
--- NOTE | 2018-05-19 18:37 | RAD REPORT ---
EXAM DESCRIPTION: CT - Head Brain Wo Cont - 05/19/2018 6:13 pm CLINICAL HISTORY: VISUAL DISTURBANCES COMPARISON: Head Brain Wo Cont dated 03/24/2018; TECHNIQUE: Computed axial tomography of the head was obtained. IV contrast was not requested. All CT scans are performed using dose optimization technique as appropriate and may include automated exposure control or mA/KV adjustment according to patient size. FINDINGS: An intracranial bleed is not seen . The ventricles are normal in caliber. No extra-axial fluid collection is noted. Mild to moderate low-density areas within periventricular, deep and subcortical white matter likely represent ischemic changes secondary to small vessel disease . Fluid within the sinuses/ mastoids is not seen. IMPRESSION: No acute intracranial abnormality is seen. If patient's symptoms persist MRI of the bra in would be recommended.
--- NOTE | 2018-05-19 18:42 | ER ---
Nurse's Notes [facility] Name: Francisco Javier Barnard Age: 67 yrs Sex: Male : 1950 Arrival Date: 05/19/2018 Time: 15:49 Bed 7 Private MD: Diagnosis: Orthostatic hypotension Presentation: 05/19 15:51 Presenting complaint: Patient states: His blood pressure has been low for the past 5 aj1 days. He has also had a headache for the past 2 days. Reports fatigue. Denies dizziness. Patient states that he just had dialysis, and they kept him for a long time after dialysis because his pressure was low there as well. Transition of care: patient was not received from another setting of care. Onset of symptoms was April 2018. Risk Assessment: Do you want to hurt yourself or someone else? Patient reports no desire to harm self or others. Initial Sepsis Screen: Does the patient meet any 2 criteria? HR > 90 bpm. Does the patient have a suspected source of infection? No. Patient's initial sepsis screen is negative. Care prior to arrival: None. 15:51 Method Of Arrival: Wheelchair aj1 15:51 Acuity: AUDRA 2 aj1 Triage Assessment: 15:56 General: Appears in no apparent distress. uncomfortable, Behavior is calm, cooperative, aj1 appropriate for age. Pain: Complains of pain in occipital area Pain currently is 8 out of 10 on a pain scale. Neuro: Level of Consciousness is awake, alert, obeys commands. Respiratory: Airway is patent Respiratory effort is even, unlabored, Respiratory pattern is regular, symmetrical. Derm: Skin is pale. Historical: - Allergies: 15:56 NKDA; aj1 - Home Meds: 15:56 aspirin 81 mg Oral chew 1 tab once daily [Active]; atorvastatin 20 mg Oral tab aj1 [Active]; carvedilol 25 mg Oral tab 1 tab at bedtime [Active]; gabapentin 300 mg Oral cap 1 cap 3 times per day [Active]; hydralazine 10 mg Oral tab 1 tab TID [Active]; hydrocortisone 10 mg Oral tab 1 tab once daily [Active]; [place] 5-325 mg Oral tab 1 tab 4 times per day as needed for pain [Active]; pantoprazole 40 mg Oral TbEC 1 tab 2 times per day [Active]; terazosin 2 mg Oral cap 1 cap once daily [Active]; - PMHx: 15:56 Diabetes - IDDM; Dialysis; ESRD; Hypertension; aj1 - Immunization history:: Flu vaccine is not up to date. - Social history:: Smoking status: Patient/guardian denies using tobacco. - Ebola Screening: : Patient denies travel to an Ebola-affected area in the 21 days before illness onset. Screenin:00 Abuse screen: Denies threats or abuse. Denies injuries from another. Nutritional cc3 screening: No deficits noted. Tuberculosis screening: No symptoms or risk factors identified. Fall Risk Ambulatory Aid- None/Bed Rest/Nurse Assist (0 pts). Gait- Normal/Bed Rest/Wheelchair (0 pts) Mental Status- Oriented to own ability (0 pts). Assessment: 16:00 General: Appears in no apparent distress. comfortable, Behavior is calm, cooperative, cc3 appropriate for age. Pain: Complains of pain in back, neck and abdomen Pain currently is 6 out of 10 on a pain scale. Neuro: Level of Consciousness is awake, alert, obeys commands, Oriented to person, place, time, situation, Appropriate for age. Cardiovascular: Denies chest pain. Respiratory: Airway is patent Respiratory effort is even, unlabored, Respiratory pattern is regular, symmetrical. GI: Abdomen is round non-distended. : Reports he is on hemodialysis every Tuesday, Tuesday, and Tuesday. EENT: No signs and/or symptoms were reported regarding the EENT system. Derm: Skin is pale. Musculoskeletal: No signs and/or symptoms reported regarding the musculoskeletal system. 17:31 Reassessment: Patient appears in no apparent distress at this time. Patient and/or cc3 family updated on plan of care and expected duration. Pain level reassessed. Patient is alert, oriented x 3, equal unlabored respirations, skin warm/dry/pink. 18:26 Reassessment: Patient appears in no apparent distress at this time. Patient and/or cc3 family updated on plan of care and expected duration. Pain level reassessed. Patient is alert, oriented x 3, equal unlabored respirations, skin warm/dry/pink. Patient came back from CT scan department and CT scan of head done. Vital Signs: 15:56 BP 85 / 53; Pulse 88; Resp 18; Temp 97.6; Pulse Ox 97% on R/A; Weight 64.86 kg (R); aj1 Height 5 ft. 5 in. (165.10 cm); Pain 8/10; 16:07 BP 124 / 72; Pulse 70; Resp 15; Pulse Ox 97% on R/A; hb 16:30 BP 147 / 72; Pulse 75; Resp 17; Pulse Ox 96% on R/A; cc3 17:00 BP 154 / 58; Pulse 74; Resp 18; Pulse Ox 96% on R/A; cc3 17:33 BP 113 / 49 Sitting; Pulse 80; Resp 18; Pulse Ox 98% on R/A; cc3 17:35 BP 93 / 45 Standing; Pulse 79; Resp 17; Pulse Ox 99% on R/A; cc3 17:37 BP 106 / 73 Supine; Pulse 62; Resp 17; Pulse Ox 98% on R/A; cc3 17:45 BP 158 / 71; Pulse 79; Resp 17 S; Pulse Ox 97% on R/A; cc3 18:26 BP 197 / 91; Pulse 75; Resp 17 S; Pulse Ox 100% on R/A; cc3 18:50 BP 182 / 87; Pulse 75; Resp 16 S; Pulse Ox 100% on R/A; Pain 3/10; cc3 15:56 Body Mass Index 23.80 (64.86 kg, 165.10 cm) aj1 ED Course: 15:49 Patient arrived in ED. mr 15:56 Triage completed. aj1 15:56 Arm band placed on Patient placed in an exam room. aj1 15:58 Ash Mayer PA is PHCP. jr8 15:58 Joshua Maki MD is Attending Physician. jr8 16:05 Jesenia Luque, MELISA is Primary Nurse. 16:08 X-ray completed. Portable x-ray completed in exam room. Patient tolerated procedure ml well. 16:09 XRAY Chest (1 view) In Process Unspecified. EDMS 16:16 Patient has correct armband on for positive identification. Placed in gown. Bed in low mb4 position. Call light in reach. Side rails up X2. sill worker on. Pulse ox on. NIBP on. 16:16 Missed attempt(s): 22 gauge in right forearm. Bleeding controlled, band aid applied, mb4 catheter tip intact. 16:30 EKG done, by loss control technician. reviewed by Ash FONTANEZ. dt2 16:40 Initial lab(s) drawn, by ED staff, sent to lab. Inserted saline lock: 22 gauge in right cc3 antecubital area, using aseptic technique. Blood collected. 16:41 Marilou Gregory is Primary Nurse. cc3 18:13 CT Head Brain wo Cont In Process Unspecified. EDMS 18:54 No provider procedures requiring assistance completed. IV discontinued, intact, hb bleeding controlled, No redness/swelling at site. Pressure dressing applied. Administered Medications: 17:54 Drug: NS 0.9% 500 ml Route: IV; Rate: bolus; Site: right antecubital; cc3 18:42 Follow up: IV Status: Completed infusion; IV Intake: 500ml cc3 Intake: 18:42 IV: 500ml; Total: 500ml. cc3 Outcome: 18:41 Discharge ordered by . jr8 18:54 Discharged to home ambulatory, with family. hb 18:54 Condition: stable 18:54 Discharge instructions given to patient, family, Instructed on discharge instructions, follow up and referral plans. medication usage, Demonstrated understanding of instructions, follow-up care, medications. 19:02 Patient left the ED. cc3 Signatures: Dispatcher [employer] EDMS Ute Cherry RN RN aj1 Verde, Stephanie RN Nunu Tinoco, Ash Cortes PA PA jr8 Elvira Vargas, Patricia Lopez RN dt2 Tesha Vargas mb4 Marilou Gregory cc3 Corrections: (The following items were deleted from the chart) 17:18 16:00 Pain: Denies pain. cc3 cc3 18:02 16:00 : Reports he is on hemodialysis every Tuesday, Tuesday, and Tuesday. cc3 cc3
--- NOTE | 2018-05-19 18:42 | EDPHYS ---
Physician Documentation [facility] Name: Francisco Javier Barnard Age: 67 yrs Sex: Male : 1950 Arrival Date: 05/19/2018 Time: 15:49 Bed 7 Private MD: ED Physician Joshua Maki HPI: 05/19 16:37 This 67 yrs old Male presents to ER via Wheelchair with complaints of Blood jr8 Pressure Problem. 16:37 Patient reports fatigue and headache for the past 5 days. Noticed that his blood jr8 pressure was low. Had dialysis today and kept him there for several hours because it was low. Advised to come to ED at that time. Denies chest pain, n/v/d, fevers. Severity of symptoms: At their worst the symptoms were mild in the emergency department the symptoms are unchanged. The patient has not experienced similar symptoms in the past. The patient has not recently seen a physician. Historical: - Allergies: 15:56 NKDA; aj1 - Home Meds: 15:56 aspirin 81 mg Oral chew 1 tab once daily [Active]; atorvastatin 20 mg Oral tab aj1 [Active]; carvedilol 25 mg Oral tab 1 tab at bedtime [Active]; gabapentin 300 mg Oral cap 1 cap 3 times per day [Active]; hydralazine 10 mg Oral tab 1 tab TID [Active]; hydrocortisone 10 mg Oral tab 1 tab once daily [Active]; [place] 5-325 mg Oral tab 1 tab 4 times per day as needed for pain [Active]; pantoprazole 40 mg Oral TbEC 1 tab 2 times per day [Active]; terazosin 2 mg Oral cap 1 cap once daily [Active]; - PMHx: 15:56 Diabetes - IDDM; Dialysis; ESRD; Hypertension; aj1 - Immunization history:: Flu vaccine is not up to date. - Social history:: Smoking status: Patient/guardian denies using tobacco. - Ebola Screening: : Patient denies travel to an Ebola-affected area in the 21 days before illness onset. ROS: 16:37 Eyes: Negative for injury, pain, redness, and discharge, ENT: Negative for injury, jr8 pain, and discharge, Neck: Negative for injury, pain, and swelling, Cardiovascular: Negative for chest pain, palpitations, and edema, Abdomen/GI: Negative for abdominal pain, nausea, vomiting, diarrhea, and constipation, Back: Negative for injury and pain, MS/Extremity: Negative for injury and deformity, Skin: Negative for injury, rash, and discoloration. 16:37 Constitutional: Positive for fatigue. 16:37 Respiratory: Positive for shortness of breath, Negative for cough, dyspnea on exertion, sputum production, wheezing. 16:37 Neuro: Positive for headache, Negative for altered mental status, dizziness, gait disturbance, hearing loss, loss of consciousness, numbness, seizure activity, speech changes, syncope, near syncope, tingling, tinnitus, tremor, visual changes, weakness. Exam: 16:37 Eyes: Pupils equal round and reactive to light, extra-ocular motions intact. Lids and jr8 lashes normal. Conjunctiva and sclera are non-icteric and not injected. Cornea within normal limits. Periorbital areas with no swelling, redness, or edema. ENT: Nares patent. No nasal discharge, no septal abnormalities noted. Tympanic membranes are normal and external auditory canals are clear. Oropharynx with no redness, swelling, or masses, exudates, or evidence of obstruction, uvula midline. Mucous membranes moist. Neck: Trachea midline, no thyromegaly or masses palpated, and no cervical lymphadenopathy. Supple, full range of motion without nuchal rigidity, or vertebral point tenderness. No Meningismus. Cardiovascular: Regular rate and rhythm with a normal S1 and S2. No gallops, murmurs, or rubs. Normal PMI, no JVD. No pulse deficits. Respiratory: Lungs have equal breath sounds bilaterally, clear to auscultation and percussion. No rales, rhonchi or wheezes noted. No increased work of breathing, no retractions or nasal flaring. Abdomen/GI: Soft, non-tender, with normal bowel sounds. No distension or tympany. No guarding or rebound. No evidence of tenderness throughout. Back: No spinal tenderness. No costovertebral tenderness. Full range of motion. Skin: Warm, dry with normal turgor. Normal color with no rashes, no lesions, and no evidence of cellulitis. MS/ Extremity: Pulses equal, no cyanosis. Neurovascular intact. Full, normal range of motion. Neuro: Awake and alert, GCS 15, oriented to person, place, time, and situation. Cranial nerves II-XII grossly intact. Motor strength 5/5 in all extremities. Sensory grossly intact. Cerebellar exam normal. Normal gait. Vital Signs: 15:56 BP 85 / 53; Pulse 88; Resp 18; Temp 97.6; Pulse Ox 97% on R/A; Weight 64.86 kg (R); aj1 Height 5 ft. 5 in. (165.10 cm); Pain 8/10; 16:07 BP 124 / 72; Pulse 70; Resp 15; Pulse Ox 97% on R/A; hb 16:30 BP 147 / 72; Pulse 75; Resp 17; Pulse Ox 96% on R/A; cc3 17:00 BP 154 / 58; Pulse 74; Resp 18; Pulse Ox 96% on R/A; cc3 17:33 BP 113 / 49 Sitting; Pulse 80; Resp 18; Pulse Ox 98% on R/A; cc3 17:35 BP 93 / 45 Standing; Pulse 79; Resp 17; Pulse Ox 99% on R/A; cc3 17:37 BP 106 / 73 Supine; Pulse 62; Resp 17; Pulse Ox 98% on R/A; cc3 17:45 BP 158 / 71; Pulse 79; Resp 17 S; Pulse Ox 97% on R/A; cc3 18:26 BP 197 / 91; Pulse 75; Resp 17 S; Pulse Ox 100% on R/A; cc3 18:50 BP 182 / 87; Pulse 75; Resp 16 S; Pulse Ox 100% on R/A; Pain 3/10; cc3 15:56 Body Mass Index 23.80 (64.86 kg, 165.10 cm) [facility] MDM: 15:59 Patient medically screened. [facility] 18:41 Data reviewed: vital signs, nurses notes, lab test result(s), EKG, radiologic studies, [facility] CT scan. Data interpreted: Pulse oximetry: on room air is 100 %. Interpretation: normal. Counseling: I had a detailed discussion with the patient and/or guardian regarding: the historical points, exam findings, and any diagnostic results supporting the discharge/admit diagnosis, lab results, radiology results, the need for outpatient follow up, a family practitioner, to return to the emergency department if symptoms worsen or persist or if there are any questions or concerns that arise at home. 05/19 15:59 Order name: Basic Metabolic Panel; Complete Time: 17:28 [facility] 05/19 15:59 Order name: CBC with Diff; Complete Time: 17:28 05/19 15:59 Order name: LFT's; Complete Time: 17:28 05/19 15:59 Order name: Magnesium; Complete Time: 17:28 05/19 15:59 Order name: NT PRO-BNP; Complete Time: 17:28 05/19 15:59 Order name: PT-INR; Complete Time: 17:28 05/19 15:59 Order name: Troponin (emerg Dept Use Only); Complete Time: 17:28 05/19 15:59 Order name: XRAY Chest (1 view); Complete Time: 16:26 05/19 15:59 Order name: EKG; Complete Time: 16:00 05/19 15:59 Order name: Cardiac monitoring; Complete Time: 16:42 05/19 15:59 Order name: EKG - Nurse/Tech; Complete Time: 16:44 05/19 15:59 Order name: IV Saline Lock; Complete Time: 16:44 05/19 17:51 Order name: CT Head Brain wo Cont; Complete Time: 18:41 05/19 15:59 Order name: Labs collected and sent; Complete Time: 16:44 05/19 15:59 Order name: O2 Per Protocol; Complete Time: 16:44 05/19 15:59 Order name: O2 Sat Monitoring; Complete Time: 16:44 05/19 17:29 Order name: Orthostatics; Complete Time: 17:47 Administered Medications: 17:54 Drug: NS 0.9% 500 ml Route: IV; Rate: bolus; Site: right antecubital; cc3 18:42 Follow up: IV Status: Completed infusion; IV Intake: 500ml cc3 Disposition: 05/19/18 18:41 Discharged to Home. Impression: Orthostatic hypotension. - Condition is Stable. - Discharge Instructions: Orthostatic Hypotension. - Medication Reconciliation Form, Thank You Letter, Antibiotic Education, Prescription Opioid Use form. - Follow up: Private Physician; When: 2 - 3 days; Reason: Recheck today's complaints, Continuance of care, Re-evaluation by your physician. - Problem is new. - Symptoms have improved. Addendum: 05/23/2018 08:10 Co-signature as Attending Physician, Joshua Maki MD I agree with the assessment and c dominguez plan of care. Signatures: Dispatcher [employer] EDUte Nelson, RN RN aj1 Joshua Maki MD MD cha Roszak, Josh, PA PA jr8 Bencarlos albertoMarilou cc3 Corrections: (The following items were deleted from the chart) 05/19 19:02 18:41 05/19/2018 18:41 Discharged to Home. Impression: Orthostatic hypotension. cc3 Condition is Stable. Forms are Medication Reconciliation Form, Thank You Letter, Antibiotic Education, Prescription Opioid Use. Follow up: Private Physician; When: 2 - 3 days; Reason: Recheck today's complaints, Continuance of care, Re-evaluation by your physician. Problem is new. Symptoms have improved. jr8
[2018-05-19 19:15] VITALS: TEMP 97.6
[2018-05-19 19:22] VITALS: O2SAT 100
[2018-05-19 19:24] VITALS: BP 182/87
--- NOTE | 2018-05-20 06:06 | EKG ---
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
== END 2018-05-19 19:02 | disposition home or self-care (01) ==
LOC: ER 15:45
DX: I95.1 Orthostatic hypotension (principal); I12.0 Hypertensive chronic kidney disease with stage 5 chronic kidney disease or end stage renal disease; E11.22 Type 2 diabetes mellitus with diabetic chronic kidney disease; N18.6 End stage renal disease; Z99.2 Dependence on renal dialysis; Z79.4 Long term (current) use of insulin; Z79.82 Long term (current) use of aspirin
CPT/HCPCS: 36415; 70450; 71045; 80048; 80076; 83735; 83880; 84484; 85025; 85610; 93005; 96360; 99285

== ENCOUNTER 2018-08-19 10:50 | Observation (INO) | payer OTHER ==
[2018-08-19 12:52] LABS: Absolute Lymphocytes (CBC) 1.3 K/uL (0.7-4.9); Absolute Monocytes 0.6 K/uL (0.1-1.3); Absolute Neutrophil 3.5 K/uL (1.8-8.0); Basophils % 1.1 % (0-1.3); Hematocrit 35.4 % (39.6-49.0); Lymphocytes % 22.2 % (15.3-44.8); MCH 29.8 pg (27.0-35.0); MCV 89.7 fL (80-100); MPV 9.2 fL (7.6-11.3); Monocytes % 9.8 % (3.3-12.3); RBC Red Blood Cell Count 3.95 M/uL (4.33-5.43)
[2018-08-19 12:53] LABS: Protime INR 1.02
--- NOTE | 2018-08-19 13:05 | RAD REPORT ---
EXAM DESCRIPTION: RAD - Chest Single View - 08/19/2018 12:59 pm CLINICAL HISTORY: ABDOMINAL DISTENTION Chest pain. COMPARISON: Chest Single View dated 05/19/2018; Chest Single View dated 03/24/2018; Chest Single View d ated 03/20/2018; Chest Pa And Lat (2 Views) dated 09/30/2017 FINDINGS: Portable technique limits examination quality. The lungs are grossly clear. The heart is normal in size. No displaced fractures.Postsurgical changes are seen medial left arm. IMPRESSION: No acute intrathoracic process suspected.
[2018-08-19 13:17] LABS: Blood Morphology Comment NOT SEEN (NOT SEEN); Platelet Estimate ADEQ; Urine White Blood Cell Casts OK
[2018-08-19 13:21] LABS: Albumin 3.5 g/dL (3.4-5.0); Bilirubin Direct 0.1 mg/dL (0-0.2); Bilirubin Total 0.5 mg/dL (0.2-1.0); Magnesium 2.1 mg/dL (1.8-2.4); Potassium 4.9 mmol/L (3.5-5.1); Protein, Total 7.7 g/dL (6.4-8.2); Troponin (Emerg Dept Use Only) 0.02 ng/mL (0.0-0.045)
[2018-08-19] MEDS ORDERED: ONDANSETRON 4 MG/2 ML VIAL ONE (13:40)
[2018-08-19] MEDS ORDERED: MORPHINE 2 MG/ML SYR ONE (13:40)
[2018-08-19] MEDS ORDERED: PANTOPRAZOLE 40 MG INJ ONE (13:40)
--- NOTE | 2018-08-19 13:42 | EDPHYS ---
Physician Documentation [facility] Name: Francisco Javier Barnard Age: 67 yrs Sex: Male : 1950 Arrival Date: 08/19/2018 Time: 10:54 Bed 14 Private MD: None, None ED Physician Joshua Maki HPI: 08/19 12:04 This 67 yrs old Male presents to ER via Ambulatory with complaints of sara Abdominal Pain, Nausea. 12:04 The patient presents to the emergency department with nausea, that is mild, that is sara moderate, vomiting, that is intermittent. Onset: The symptoms/episode began/occurred 3 day(s) ago. Possible causes: unknown. The symptoms are aggravated by food , The symptoms are alleviated by nothing. remaining still. Associated signs and symptoms: The patient has no apparent associated signs or symptoms. Severity of symptoms: At their worst the symptoms were mild moderate in the emergency department the symptoms are unchanged. The patient has not experienced similar symptoms in the past. Historical: - Allergies: 11: NKDA; hb - PMHx: 11:02 Diabetes - IDDM; Dialysis; ESRD; Hypertension; hb - Immunization history:: Adult Immunizations unknown. - Social history:: Smoking status: Patient/guardian denies using tobacco. - Ebola Screening: : Patient negative for fever greater than or equal to 101.5 degrees Fahrenheit, and additional compatible Ebola Virus Disease symptoms Patient denies exposure to infectious person Patient denies travel to an Ebola-affected area in the 21 days before illness onset No symptoms or risks identified at this time. ROS: 12:05 Constitutional: Negative for fever, chills, and weight loss, Eyes: Negative for injury, sara pain, redness, and discharge, ENT: Negative for injury, pain, and discharge, Neck: Negative for injury, pain, and swelling, Cardiovascular: Negative for chest pain, palpitations, and edema, Respiratory: Negative for shortness of breath, cough, wheezing, and pleuritic chest pain, Back: Negative for injury and pain, : Negative for injury, bleeding, discharge, and swelling, MS/Extremity: Negative for injury and deformity, Skin: Negative for injury, rash, and discoloration, Neuro: Negative for headache, weakness, numbness, tingling, and seizure, Psych: Negative for depression, anxiety, suicide ideation, homicidal ideation, and hallucinations, Allergy/Immunology: Negative for hives, rash, and allergies, Endocrine: Negative for neck swelling, polydipsia, polyuria, polyphagia, and marked weight changes, Hematologic/Lymphatic: Negative for swollen nodes, abnormal bleeding, and unusual bruising. 12:05 Abdomen/GI: Positive for abdominal pain, of the epigastric area, right upper quadrant and left upper quadrant. Exam: 12:05 Constitutional: This is a well developed, well nourished patient who is awake, alert, sara and in no acute distress. Head/Face: Normocephalic, atraumatic. Eyes: Pupils equal round and reactive to light, extra-ocular motions intact. Lids and lashes normal. Conjunctiva and sclera are non-icteric and not injected. Cornea within normal limits. Periorbital areas with no swelling, redness, or edema. ENT: Nares patent. No nasal discharge, no septal abnormalities noted. Tympanic membranes are normal and external auditory canals are clear. Oropharynx with no redness, swelling, or masses, exudates, or evidence of obstruction, uvula midline. Mucous membranes moist. Neck: Trachea midline, no thyromegaly or masses palpated, and no cervical lymphadenopathy. Supple, full range of motion without nuchal rigidity, or vertebral point tenderness. No Meningismus. Chest/axilla: Normal chest wall appearance and motion. Nontender with no deformity. No lesions are appreciated. Cardiovascular: Regular rate and rhythm with a normal S1 and S2. No gallops, murmurs, or rubs. Normal PMI, no JVD. No pulse deficits. Respiratory: Lungs have equal breath sounds bilaterally, clear to auscultation and percussion. No rales, rhonchi or wheezes noted. No increased work of breathing, no retractions or nasal flaring. Back: No spinal tenderness. No costovertebral tenderness. Full range of motion. Male : Normal genitalia with no discharge or lesions. Skin: Warm, dry with normal turgor. Normal color with no rashes, no lesions, and no evidence of cellulitis. MS/ Extremity: Pulses equal, no cyanosis. Neurovascular intact. Full, normal range of motion. Neuro: Awake and alert, GCS 15, oriented to person, place, time, and situation. Cranial nerves II-XII grossly intact. Motor strength 5/5 in all extremities. Sensory grossly intact. Cerebellar exam normal. Normal gait. Psych: Awake, alert, with orientation to person, place and time. Behavior, mood, and affect are within normal limits. 12:05 Abdomen/GI: Inspection: abdomen appears normal, Bowel sounds: normal, Palpation: mild abdominal tenderness, in the epigastric area, right upper quadrant and left upper quadrant, Liver: no appreciated palpable abnormalities, Hernia: not appreciated. Vital Signs: 11:09 BP 196 / 79; Pulse 71; Resp 18; Temp 97.6; Pulse Ox 99% on R/A; Pain 8/10; sg 12:00 BP 182 / 73; Pulse 73; Resp 15; Pulse Ox 95% on R/A; rb1 13:00 BP 167 / 96; Pulse 75; Resp 14; Pulse Ox 95% on R/A; rb1 14:00 BP 176 / 99; Pulse 72; Resp 17; Pulse Ox 96% on R/A; rb1 15:00 BP 180 / 54; Pulse 75; Resp 21; Pulse Ox 99% on R/A; rb1 MDM: 11:42 [facility]. [facility] 12:06 Data reviewed: vital signs, nurses notes. [facility] 08/19 12:02 Order name: Basic Metabolic Panel [facility] 08/19 12:02 Order name: CBC with Diff [facility] 08/19 12:02 Order name: LFT's [facility] 08/19 12:02 Order name: Magnesium [facility] 08/19 12:02 Order name: NT PRO-BNP [facility] 08/19 12:02 Order name: PT-INR [facility] 08/19 12:02 Order name: Troponin (emerg Dept Use Only) [facility] 08/19 12:02 Order name: Lipase [facility] 08/19 12:02 Order name: Urine Culture [facility] 08/19 12:54 Order name: CBC with Automated Diff; Complete Time: 13:26 EDND 08/19 12:54 Order name: Protime (+INR); Complete Time: 13:01 EDND 08/19 13:17 Order name: CBC Smear Scan; Complete Time: 13:26 [facility] 08/19 14:46 Order name: Basic Metabolic Panel [facility] 08/19 14:46 Order name: Liver (Hepatic) Function [facility] 08/19 12:02 Order name: XRAY Chest (1 view) [facility] 08/19 12:02 Order name: EKG; Complete Time: 12:04 [facility] 08/19 12:02 Order name: Cardiac monitoring; Complete Time: 12:54 [facility] 08/19 12:02 Order name: EKG - Nurse/Tech; Complete Time: 12:54 [facility] 08/19 12:02 Order name: IV Saline Lock; Complete Time: 14:37 [facility] 08/19 12:02 Order name: CT Abd/Pelvis - Without Cont: oral only , no iv [facility] 08/19 13:06 Order name: RAD; Complete Time: 13:26 [facility] 08/19 14:46 Order name: Troponin (Emerg Dept Use Only) [facility] 08/19 14:46 Order name: NT PRO-BNP [facility] 08/19 14:46 Order name: Magnesium [facility] 08/19 14:46 Order name: Lipase [facility] 08/19 15:01 Order name: CT [facility] 08/19 12:02 Order name: Labs collected and sent; Complete Time: 12:54 [facility] 08/19 12:02 Order name: O2 Per Protocol; Complete Time: 12:54 [facility] 08/19 12:02 Order name: O2 Sat Monitoring; Complete Time: 12:54 [facility] Administered Medications: 13:35 Drug: morphine 2 mg Route: IVP; Site: right forearm; rb1 13:55 Follow up: Response: No adverse reaction; Pain is decreased rb1 13:35 Drug: Zofran 4 mg Route: IVP; Site: right forearm; rb1 13:55 Follow up: Response: No adverse reaction; Nausea is decreased rb1 13:35 Drug: ProTONIX 40 mg Route: IVP; Site: right forearm; rb1 14:36 Follow up: Response: No adverse reaction rb1 14:34 Drug: Reglan 10 mg Route: IVP; Site: right forearm; rb1 14:50 Follow up: Response: No adverse reaction; Nausea is decreased rb1 Disposition: 08/19/18 13:34 Hospitalization ordered by Abigail Irizarry for Observation. Preliminary diagnosis are Chest pain, unspecified, Abdominal tenderness, Type 1 diabetes mellitus, Gastroparesis, End stage renal disease. - Bed requested for Telemetry/MedSurg (observation). - Status is Observation. hb - Condition is Fair. - Problem is new. - Symptoms have improved. UTI on Admission? No Signatures: Dispatcher [employer] EDND Joshua Maki MD MD cha Barber, Rebecca RN RN [facility] Elvira Vargas RN RN Dahiana oMrataya, MELISA RN df Corrections: (The following items were deleted from the chart) 14:30 13:34 Hospitalization Ordered by Abigail Irizarry MD for Observation. Preliminary diagnosis df is Chest pain, unspecified; Abdominal tenderness; Type 1 diabetes mellitus; Gastroparesis; End stage renal disease. Bed requested for Telemetry/MedSurg (observation). Status is Observation. Condition is Fair. Problem is new. Symptoms have improved. UTI on Admission? No. sara 15:26 14:30 08/19/2018 13:34 Hospitalization Ordered by Abigail Irizarry MD for Observation. Preliminary diagnosis is Chest pain, unspecified; Abdominal tenderness; Type 1 diabetes mellitus; Gastroparesis; End stage renal disease. Bed requested for Telemetry/MedSurg (observation). Status is Observation. Condition is Fair. Problem is new. Symptoms have improved. UTI on Admission? No. df
--- NOTE | 2018-08-19 13:42 | ER ---
Nurse's Notes [facility] Name: Francisco Javier Barnard Age: 67 yrs Sex: Male : 1950 Arrival Date: 08/19/2018 Time: 10:54 Bed 14 Private MD: None, None Diagnosis: Chest pain, unspecified;Abdominal tenderness;Type 1 diabetes mellitus;Gastroparesis;End stage renal disease Presentation: 08/19 11:02 Acuity: AUDRA 3 hb 11:07 Presenting complaint: Patient states: Epigastric pain for 2-3 days, reports having N/V sg as well, worsened after having dialysis on Tuesday, denies fever/chills at this time. Transition of care: patient was not received from another setting of care. Onset of symptoms was August 19, 2018. Risk Assessment: Do you want to hurt yourself or someone else? Patient reports no desire to harm self or others. Initial Sepsis Screen: Does the patient meet any 2 criteria? No. Patient's initial sepsis screen is negative. Does the patient have a suspected source of infection? No. Patient's initial sepsis screen is negative. Care prior to arrival: None. 11:07 Method Of Arrival: Ambulatory sg Historical: - Allergies: 11:02 NKDA; hb - PMHx: 11:02 Diabetes - IDDM; Dialysis; ESRD; Hypertension; hb - Immunization history:: Adult Immunizations unknown. - Social history:: Smoking status: Patient/guardian denies using tobacco. - Ebola Screening: : Patient negative for fever greater than or equal to 101.5 degrees Fahrenheit, and additional compatible Ebola Virus Disease symptoms Patient denies exposure to infectious person Patient denies travel to an Ebola-affected area in the 21 days before illness onset No symptoms or risks identified at this time. Screenin:25 Abuse screen: Denies threats or abuse. Nutritional screening: No deficits noted. rb1 Tuberculosis screening: No symptoms or risk factors identified. Fall Risk None identified. Assessment: 11:25 General: Appears in no apparent distress. comfortable, Behavior is calm, cooperative. rb1 Pain: Complains of pain in epigastric area Pain currently is 8 out of 10 on a pain scale. Neuro: Level of Consciousness is awake, alert, obeys commands, Oriented to person, place, time, situation. Cardiovascular: Capillary refill < 3 seconds is brisk in bilateral fingers. Respiratory: Airway is patent Respiratory effort is even, unlabored, Respiratory pattern is regular, symmetrical. GI: Bowel sounds present X 4 quads. Abd is soft Abdomen is tender to palpation in epigastric area Reports constipation, nausea, vomiting. : Reports Dialysis M- W- F. Went to dialysis on Tuesday and started having discomfort after that. Derm: Skin is dry, Skin is normal, Skin temperature is warm. Musculoskeletal: Dialysis shunt on left upper arm. Thrill is palpable. 12:25 Reassessment: Patient appears in no apparent distress at this time. No changes from rb1 previously documented assessment. 13:24 Reassessment: Patient appears in no apparent distress at this time. Patient and/or rb1 family updated on plan of care and expected duration. Pain level reassessed. Patient is alert, oriented x 3, equal unlabored respirations, skin warm/dry/pink. 14:20 Reassessment: Patient appears in no apparent distress at this time. No changes from rb1 previously documented assessment. 14:30 Reassessment: Dr. Irizarry is at pt. bedside. rb1 14:40 Reassessment: pt. went to CT. rb1 15:10 Reassessment: Called report to MELISA Navarro. Information from the SBAR was given. All rb1 questions asked and answered. 15:20 Reassessment: Patient appears in no apparent distress at this time. Patient and/or rb1 family updated on plan of care and expected duration. Pain level reassessed. Patient is alert, oriented x 3, equal unlabored respirations, skin warm/dry/pink. Vital Signs: 11:09 BP 196 / 79; Pulse 71; Resp 18; Temp 97.6; Pulse Ox 99% on R/A; Pain 8/10; sg 12:00 BP 182 / 73; Pulse 73; Resp 15; Pulse Ox 95% on R/A; rb1 13:00 BP 167 / 96; Pulse 75; Resp 14; Pulse Ox 95% on R/A; rb1 14:00 BP 176 / 99; Pulse 72; Resp 17; Pulse Ox 96% on R/A; rb1 15:00 BP 180 / 54; Pulse 75; Resp 21; Pulse Ox 99% on R/A; rb1 ED Course: 10:54 Patient arrived in ED. sb2 10:54 None, None is Private Physician. sb2 11:02 Arm band placed on. hb 11:03 Triage completed. hb 11:25 Patient has correct armband on for positive identification. Bed in low position. Call rb1 light in reach. Side rails up X 1. quality assurance monitor final on. Pulse ox on. NIBP on. 11:36 Yisel Gil, RN is Primary Nurse. rb1 11:42 Joshua Maki MD is Attending Physician. sara 12:12 Missed attempt(s): 22 gauge in right forearm. rb1 12:35 Missed attempt(s): 22 gauge in right forearm. Bleeding controlled, band aid applied, dh3 catheter tip intact. 12:35 Initial lab(s) drawn, by de, sent to lab. dh3 12:42 Missed attempt(s): 22 gauge in right forearm. Bleeding controlled, band aid applied, dh3 catheter tip intact. 12:54 EKG done, by ED staff, reviewed by Joshua Maki MD. 3 12:59 X-ray completed. Portable x-ray completed in exam room. Patient tolerated procedure la2 well. 13:33 Abigail Irizarry MD is Hospitalizing Provider. sara 14:[address] via stretcher. cw1 14:48 CT completed. Patient moved back from CT. cw1 15:26 No provider procedures requiring assistance completed. Patient admitted, IV remains in rb1 place. Administered Medications: 13:35 Drug: morphine 2 mg Route: IVP; Site: right forearm; rb1 13:55 Follow up: Response: No adverse reaction; Pain is decreased rb1 13:35 Drug: Zofran 4 mg Route: IVP; Site: right forearm; rb1 13:55 Follow up: Response: No adverse reaction; Nausea is decreased rb1 13:35 Drug: ProTONIX 40 mg Route: IVP; Site: right forearm; rb1 14:36 Follow up: Response: No adverse reaction rb1 14:34 Drug: Reglan 10 mg Route: IVP; Site: right forearm; rb1 14:50 Follow up: Response: No adverse reaction; Nausea is decreased rb1 Outcome: 13:34 Decision to Hospitalize by Provider. sara 15:26 Patient left the ED. hb 15:26 Admitted to Med/surg accompanied by tech, via wheelchair, room 208, with chart, Report rb1 called to MELISA Navarro 15:26 Condition: stable rb1 15:26 Instructed on the need for admit. Signatures: VegaJohn RN RN sg Anderson, Corey, MD MD cha Woodley, Dora cw1 Yisel Gil RN RN rb1 Elvira Vargas RN RN hb Herrera, Deanna 3 Charlene Fernandez Sheri 2 Corrections: (The following items were deleted from the chart) 12:45 12:35 Missed attempt(s): 22 gauge in right forearm. formerly [facility]
[2018-08-19] MEDS ORDERED: ONDANSETRON 4 MG/2 ML VIAL IV PRN (14:06)
[2018-08-19] MEDS ORDERED: ACETAMINOPHEN 500 MG TAB PO PRN (14:06)
[2018-08-19] MEDS ORDERED: METOCLOPRAMIDE 10 MG/2mL INJ ONE (14:35)
--- NOTE | 2018-08-19 14:58 | RAD REPORT ---
EXAM DESCRIPTION: CT - Abdomen Pelvis Wo Contrast - 08/19/2018 2:49 pm CLINICAL HISTORY: Abdominal pain. ABD PAIN COMPARISON: Abdomen Pelvis Wo Contrast dated 03/17/2018 TECHNIQUE: CT imaging of the abdomen and pelvis was performed without contrast. Solid organ and vasc ular assessment is limited due to lack of IV contrast. All CT scans are performed using dose optimization technique as appropriate and may include automated exposure control or mA/KV adjustment according to patient size. FINDINGS: Small right pleural effusion is present. The liver demonstrates no focal mass or intrahepatic biliary dilatation. Cholecystectomy clips are se en. The spleen, adrenal glands are normal. [place] kidneys are atrophic. Advanced pancreatic atrophy i s present.Left lower quadrant transplant kidney is present without unusual finding. No bowel obstruction, free air, free fluid or abscess. Aortic atherosclerosis is noted. The appendix is normal. The osseous structures are within normal limits. IMPRESSION: No acute intra-abdominal or pelvic findings. A limited non-contrast examination was performed as detailed.
[2018-08-19] MEDS ORDERED: BISACODYL 10 MG RECTAL SUPP PR PRN (15:06)
[2018-08-19] MEDS: INSULIN -REGULAR HUMAN 50 UNIT/0.5 ML ML SQ SCH ×2 (16:30→21:00)
[2018-08-19 16:50] VITALS: BMI 26.3
[2018-08-19] MEDS ORDERED: ENOXAPARIN 30 MG/0.3 ML SQ SCH (17:00)
[2018-08-19] MEDS ORDERED: ATORVASTATIN 40 MG TAB PO SCH (21:00)
[2018-08-19] MEDS ORDERED: TERAZOSIN HCL 1 MG CAP PO SCH (21:00)
[2018-08-19] MEDS ORDERED: CARVEDILOL 25 MG TAB PO SCH (21:00)
[2018-08-19] MEDS ORDERED: HYDRALAZINE HCL 10 MG TABLET PO SCH (21:00)
[2018-08-19] MEDS: FUROSEMIDE 40 MG TABLET PO SCH (21:16)
[2018-08-19] MEDS: GABAPENTIN 100 MG CAP PO SCH (21:17)
[2018-08-19] MEDS: DOCUSATE NA 100 MG CAP PO SCH (21:17)
[2018-08-19] MEDS ORDERED: HYDROCODONE/APAP 10/325 TAB PO PRN (22:53)
--- NOTE | 2018-08-20 02:54 | HP ---
Date of Admission: 08/19/2018 Chief Complaint: Abdominal pain, generalized weakness and malaise. Primary Care Physician: At [facility]. Rails Developer: Tere Bhardwaj M.D. Code Status: Full code. History Of Present Illness: The patient is a 67-year-old male with past medical history of end-stage renal disease, on hemodialysis, hypertension, diabetes mellitus type 2, status post kidney transplant on immunosuppressants, who comes in with abdominal pain and generalized weakness following dialysis. The patient also reports constipation. Patient did have bowel movement late last night. Of note, the patient is on chronic narcotics. The patient does report some nausea but no vomiting. No fevers or chills. No ill contact. The patient's symptoms are constant, mild, and progressive. The patient came into the ER for further evaluation. Upon arrival, the patient's vital signs showed elevated blood pressure. Otherwise, he was afebrile. His workup showed creatinine of 5.4. WBC count was normal. Chest x-ray did not show any acute intrathoracic process. CT scan is pending at this time. The patient was then referred for admission. He was given Zofran, morphine, and Reglan in the ER along with Protonix. Past Medical History: Hypertension, end-stage renal disease, on dialysis. Diabetes mellitus type 2, history of PE, gastroesophageal reflux disease, major depressive disorder. Past Surgical History: Cholecystectomy, renal transplant 2007, hernia repair. Allergies: NO KNOWN DRUG ALLERGIES. Medications: List reviewed. Social History: The patient denies any tobacco use, alcohol use, or illicit drug use. Lives at home. He has good social support. Has a daughter. Family History: No history of premature coronary artery disease. Review of Systems: Ten point system reviewed, negative except as per HPI. Physical Examination: Vital Signs: pulse 71, respirations 18, temperature 97.6, O2 99% on room air. General: Awake, alert, oriented x3, ill-appearing male, elderly. HEENT: Normocephalic, atraumatic. PERRLA, EOMI. Moist mucous membranes. Oropharynx is clear. Poor dentition. Conjunctivae anicteric. Neck: Supple. No JVD. Trachea midline. CV: S1, S2. Regular rate and rhythm. Peripheral pulses present. Respiratory: Moving air well bilaterally. No wheezing or stridor. No use of accessory muscles. Gastrointestinal: Abdomen is soft, nontender, nondistended. Positive bowel sounds. No guarding or rigidity. Extremities: No clubbing, cyanosis, or edema. No calf tenderness. Neuro: Cranial nerves 2-12 intact grossly. No focal neurological deficits. Speech is normal. Strength is symmetric bilateral upper and lower extremities. Skin: No rashes. Normal skin turgor. AV fistula graft with palpable thrill in the left upper extremity. Psych: Mood is okay. Affect is full. Insight and judgment are fair. Laboratory Data: WBC 5.7, H and H are 11.8 and 35.4, platelets 157. INR 1.02. Sodium 139, potassium 4.9, chloride 100, CO2 30, BUN 23, creatinine 5.4, glucose 122, calcium 7.8, magnesium 2.1. BNP 7321. Chest x-ray shows no acute intrathoracic process. CT abdomen and pelvis pending. Assessment And Plan: A 67-year-old male with: 1. 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 The patient does report constipation as well. White count is normal. Doubt any infectious process. We will follow up on CT scan of the abdomen and pelvis. 2. Diabetes mellitus type 2 insulin requiring, with hyperglycemia. We will continue Accu-Cheks and resume home medications. 3. Essential hypertension, stable. Restart home meds. 4. History of pulmonary embolism. 5. Gastroesophageal reflux disease without esophagitis. Continue PPI. 6. Major depressive disorder. 7. Status post renal transplant. 8. End-stage renal disease, on hemodialysis. 9. Normocytic, normochromic anemia secondary to anemia of chronic disease. 10. Gastrointestinal and deep venous thrombosis prophylaxis addressed. Lovenox renally dosed. Plan: Admit the patient to Med-Surg, place of observation. We will follow up on CT scan abdomen and pelvis. Consult Nephrology, Dr. Bhardwaj, for dialysis. /ILIANA Voice ID: [id number] MTDD
--- NOTE | 2018-08-20 04:00 | CON ---
Date of Consultation: 08/19/2018 NEPHROLOGY CONSULTATION Consulting Physician: Dr. Maki Reason For Consultation: Elevated BUN and creatinine, fluid management. History Of Present Illness: This is a pleasant 67-year-old gentleman, well known to me from the dial ysis with significant past medical history of hypertension, diabetes complicated with neuropathy and nephropathy, hyperlipidemia, and GERD. The patient came to the hospital complaining of chest pain an d abdominal pain, retrosternal, increased with deep breath according to the patient, pain more after dialysis. The patient denied any nausea, any vomiting, any diarrhea. The patient's workup is still pending. Lab has been done, but we still awaiting for the CT. The patient with no fever, no chills. Past Medical History: 1.Diabetes complicated with neuropathy and nephropathy. 2.Chronic kidney disease. 3.Hypertension. 4.End-stage renal disease. 5.GERD. 6.Hyperlipidemia. Social History: Denies smoking. Denies drinking. Denies drugs abuse. Past Surgical History: 1.Cholecystectomy. 2.Renal transplant in 2007. 3.Hernia repair. Allergies: NO KNOWN DRUG ALLERGIES. Home Medications: Include carvedilol, gabapentin, hydrocortisone, pantoprazole, Imuran, Lasix, and N orvasc. Review of Systems: Head and Neck: No red eye. No ear pain. GI: Has epigastric pain. Has retrosternal pain. Respiratory: No shortness of breath. Cardiovascular: Has chest pain. Musculoskeletal: No low back pain. Endocrine: No polydipsia. Skin: No rash. Neuro: Has neuropathy. Physical Examination: Vital Signs: When I saw the patient, blood pressure of 176/75, pulse of 88. Chest: Clear to auscultation. Heart: S1, S2. Systolic murmur. Abdomen: Soft, nontender. Extremities: No edema. Neurological: Alert and oriented x3. Nonfocal. Laboratory Data: WBC 5.7, H and H 11.8/35.4, platelets 157. Sodium 139, potassium 4.9, bicarb 30, B UN 23, creatinine 5.4, calcium 7.8. BNP 1700. CT abdomen and pelvis, no acute abdominal finding. Assessment And Plan: 1.End-stage renal disease, looking on the wet side. We will arrange for dialysis. 2.Hypertension, not controlled. I am going to go ahead and start the patient on GUERRERO inhibitor and w e will follow up. 3.Chest pain, typical. We will follow up with the primary. 4.Diabetes, stable. 5.Kidney transplant status post rejection. Continue home medication. LEATHA Voice ID: [id number] Report ID: [id number]
[2018-08-20 05:15] LABS: Absolute Lymphocytes (CBC) 1.3 K/uL (0.7-4.9); Absolute Monocytes 0.5 K/uL (0.1-1.3); Absolute Neutrophil 1.8 K/uL (1.8-8.0); Hematocrit 33.2 % (39.6-49.0); Lymphocytes % 31.4 % (15.3-44.8); MCH 30.1 pg (27.0-35.0); MCV 90.3 fL (80-100); MPV 9.2 fL (7.6-11.3); Monocytes % 11.8 % (3.3-12.3); RBC Red Blood Cell Count 3.67 M/uL (4.33-5.43)
[2018-08-20 05:38] LABS: Albumin 2.9 g/dL (3.4-5.0); Bilirubin Total 0.4 mg/dL (0.2-1.0); Protein, Total 6.6 g/dL (6.4-8.2)
--- NOTE | 2018-08-20 06:18 | EKG ---
Test Date: 2018-08-19 Test Time: 12:52:49 Carcass Trimmer: LIOR MEASUREMENT RESULTS: Intervals: Rate: 73 SC: 392 QRSD: 92 QT: 404 QTc: 445 [place]: P: 33 SC: 392 QRS: 75 T: 259 INTERPRETIVE STATEMENTS: Sinus rhythm with 1st degree AV block Possible Left atrial enlargement ST & T wave abnormality, consider inferior ischemia Abnormal ECG Compared to ECG 05/19/2018 16:13:34 No significant changes Electronically Signed On 08-20-18 06:16:56 RADAR ENGINEER by Janes Oliveira
[2018-08-20] MEDS: INSULIN -REGULAR HUMAN 50 UNIT/0.5 ML ML SQ SCH ×2 (07:30→12:04)
[2018-08-20] MEDS: GABAPENTIN 100 MG CAP PO SCH (08:49)
[2018-08-20] MEDS: DOCUSATE NA 100 MG CAP PO SCH (08:49)
[2018-08-20] MEDS: FUROSEMIDE 40 MG TABLET PO SCH (08:50)
[2018-08-20] MEDS ORDERED: ASPIRIN 81 MG CHEWABLE TABLET PO SCH (09:00)
[2018-08-20] MEDS ORDERED: POLYETHYL GLY 3350 17 GM/DOSE PO SCH (09:00)
[2018-08-20] MEDS ORDERED: HYDRALAZINE HCL 10 MG TABLET PO SCH (09:00)
[2018-08-20] MEDS ORDERED: CITALOPRAM 10 MG TABLET PO SCH (09:00)
[2018-08-20 09:14] VITALS: O2SAT 98
[2018-08-20 12:47] VITALS: BP 142/57; TEMP 97
--- NOTE | 2018-08-20 18:48 | PN ---
Date of Progress Note: 08/20/2018 NEPHROLOGY FOLLOWUP Subjective: The patient was admitted with a cramp, abdominal pain. CT workup was negative. Objective: Vital Signs: When I saw the patient, blood pressure 142/57, pulse of 62. Chest: Clear to auscultation. Heart: S1, S2 regular. Abdomen: Soft, nontender. Extremities: No edema. Laboratory Data: WBC 4, H and H are 11/30.2, platelets of 141. Sodium of 138, potassium 4.0, bicarb 28, BUN 29, creatinine 6.2. Assessment And Plan: 1.End-stage renal disease. Normal volume. We will continue the patient on dialysis. We will sched ule for dialysis tomorrow. 2.Hypertension, controlled, not optimal. I can adjust blood pressure medication. 3.Anemia of chronic kidney disease. The patient is stable. We will resume JANE as outpatient. 4.Abdominal pain. Workup negative, mostly secondary to dehydration. Recover after IV hydration. W e will follow up with the primary. The patient cleared up from the renal standpoint for discharge char enciso. LEATHA Voice ID: [id number] Report ID: [id number]
--- NOTE | 2018-08-21 14:58 | DS ---
Date of Discharge: 08/20/2018 Consultants: Dr. Bhardwaj. 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 2.Diabetes mellitus type 2 with hyperglycemia. 3.End-stage renal disease, on hemodialysis. 4.Essential hypertension. 5.History of pulmonary embolism. 6.Gastroesophageal reflux disease without esophagitis. 7.Major depressive disorder. 8.Status post renal transplant. 9.Normocytic normochromic anemia, anemia of chronic disease. Hospital Course: The patient is a 67-year-old male, past medical history of end-stage renal disease on hemodialysis, hypertension, diabetes, status post kidney transplant on immunosuppressants, comes i n with generalized weakness as well as some abdominal pain. The patient also has some generalized we akness following dialysis. The patient also reports some significant constipation. Of note, the jami arroyo is on chronic narcotics. No fevers or chills were reported. The patient was admitted for furth er evaluation. His CT scan showed no acute intraabdominal or pelvic findings. The patient did well over the course of the hospital stay. He was given stool softeners. He had some small bowel movemen ts x2. His abdominal pain resolved. The patient was then cleared for discharge from [facility] He will be going for dialysis as scheduled outpatient tomorrow. The patient was counseled r egarding his chronic narcotic use causing chronic constipation and possibly nor narcotic bowel syndro me. The patient may need to be on medications to help improve those symptoms if they recur. The jami arroyo was then discharged home in a stable condition. Activity: As tolerated. No driving or operating heavy machinery while on narcotics. Diet: Renal. Followup: Follow up with primary care physician in 2 to 3 days. Follow up with barrel racer, Dr. Abbasi in 2 weeks. Return to ER for worsening condition. Medications: As per medication reconciliation list. Physical Examination: General: Awake, alert, oriented, no acute distress. CV: S1, S2. No murmurs. Respiratory: Moving air well bilaterally. No wheezing. Abdomen: Soft, nontender, nondistended. Positive bowel sounds. Extremities: No clubbing, cyanosis, or edema. Neurologic: Nonfocal. SA/MODL Voice ID: [id number] Report ID: [id number]
== END 2018-08-20 13:39 | disposition home or self-care (01) ==
LOC: ER 10:50 → ERHOLD 13:36 → INTOOBSV 13:36 → 2ND 15:18
PROVIDERS: ADMIT Family Medicine; ATTEND Family Medicine
DX: R10.9 Unspecified abdominal pain (principal); I12.0 Hypertensive chronic kidney disease with stage 5 chronic kidney disease or end stage renal disease; E11.22 Type 2 diabetes mellitus with diabetic chronic kidney disease; N18.6 End stage renal disease; K21.9 Gastro-esophageal reflux disease without esophagitis; R01.1 Cardiac murmur, unspecified; D63.1 Anemia in chronic kidney disease; E11.65 Type 2 diabetes mellitus with hyperglycemia; E86.0 Dehydration; F32.9 Major depressive disorder, single episode, unspecified; Z94.0 Kidney transplant status; Z86.711 Personal history of pulmonary embolism
CPT/HCPCS: 36415; 71045; 74176; 80048; 80053; 80076; 82962 ×4; 83690; 83735; 83880; 84484; 85025 ×2; 85610; 93005; 94760 ×3; 96374; 96375; 99285; C9113; G0378 ×2; J1650; J2270; J2405; J2765

== ENCOUNTER 2018-09-25 20:44 | Observation (INO) | payer OTHER ==
--- OUTSIDE RECORDS SUMMARY | 2018-09-25 20:46 | XMS REPORT ---
:1950 [facility] Address [address] [place] [address] Dr. Chacon [address] [place] [id number] Care Team Providers Name Role Phone Unavailable Unavailable Unavailable Problems This patient has no known problems. Allergies, Adverse Reactions, Alerts This patient has no known allergies or adverse reactions. Medications This patient has no known medications.
[2018-09-25 22:27] LABS: Absolute Lymphocytes (CBC) 0.5 K/uL (0.7-4.9); Absolute Monocytes 0.6 K/uL (0.1-1.3); Absolute Neutrophil 8.8 K/uL (1.8-8.0); Basophils % 0.5 % (0-1.3); Eosinophils % 0.6 % (0-4.4); Hematocrit 34.9 % (39.6-49.0); Lymphocytes % 5.3 % (15.3-44.8); MPV 8.1 fL (7.6-11.3); Monocytes % 5.8 % (3.3-12.3)
[2018-09-25] MEDS ORDERED: NA CHLORIDE 0.9% 1,000 ML ONE (22:34)
[2018-09-25] MEDS ORDERED: ONDANSETRON 4 MG/2 ML VIAL ONE (22:34)
[2018-09-25 22:44] LABS: Albumin 3.3 g/dL (3.4-5.0); Bilirubin Direct 0.2 mg/dL (0-0.2); Bilirubin Total 0.6 mg/dL (0.2-1.0); Potassium 4.2 mmol/L (3.5-5.1)
[2018-09-25 22:46] LABS: Blood Morphology Comment NOT SEEN (NOT SEEN); Platelet Estimate ADEQ; Urine White Blood Cell Casts OK
[2018-09-25 23:05] LABS: Protime INR 1.16
[2018-09-25 23:15] LABS: NT PRO-BNP 16096 pg/mL (<125); Troponin (Emerg Dept Use Only) < 0.02 ng/mL (0.0-0.045)
--- NOTE | 2018-09-26 00:10 | ER ---
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 Transition of care: patient was not received from another setting of care. Onset of symptoms was September 25, 2018. Risk Assessment: Do you want to hurt yourself or someone else? Patient reports no desire to harm self or others. Initial Sepsis Screen: Does the patient meet any 2 criteria? No. Patient's initial sepsis screen is negative. Does the patient have a suspected source of infection? No. Patient's initial sepsis screen is negative. Care prior to arrival: None. 21:20 Method Of Arrival: Ambulatory bb 21:20 Acuity: AUDRA 3 bb Historical: - Allergies: 21:24 NKDA; bb - Home Meds: 21:24 aspirin 81 mg Oral chew 1 tab once daily [Active]; atorvastatin 20 mg Oral tab bb [Active]; carvedilol 25 mg Oral tab 1 tab at bedtime [Active]; gabapentin 300 mg Oral cap 1 cap 3 times per day [Active]; pantoprazole 40 mg Oral TbEC 1 tab 2 times per day [Active]; terazosin 2 mg Oral cap 1 cap once daily [Active]; aspirin 81 mg Oral chew 1 tab once daily [Active]; furosemide 80 mg Oral tab [Active]; metoclopramide HCl 5 mg Oral tab [Active]; docusate sodium 100 mg Oral tab 1 tab once daily [Active]; - PMHx: 21:24 Diabetes - IDDM; Dialysis; ESRD; Hypertension; bb - PSHx: 21:24 fistula; bb - Immunization history:: Adult Immunizations up to date. - Social history:: Smoking status: unknown. - Ebola Screening: : No symptoms or risks identified at this time. Screenin:47 Abuse screen: Denies threats or abuse. Nutritional screening: No deficits noted. ea Tuberculosis screening: No symptoms or risk factors identified. Fall Risk IV access (20 points). Assessment: 21:30 General: Appears in no apparent distress. uncomfortable, Behavior is calm, cooperative, ea appropriate for age. Pain: Complains of pain in abdomen. Neuro: Level of Consciousness is awake, alert, obeys commands, Oriented to person, place, time, situation. Cardiovascular: Patient's skin is warm and dry. Respiratory: Airway is patent Respiratory effort is even, unlabored, Respiratory pattern is regular, symmetrical, Breath sounds are diminished in left posterior lower lobe and right posterior lower lobe. GI: Abdomen is round Bowel sounds present X 4 quads. Reports lower abdominal pain, upper abdominal pain, nausea, vomiting. Derm: Skin is dry, Skin is pale, Skin temperature is warm. 22:50 Reassessment: Patient and/or family updated on plan of care and expected duration. Pain ea level reassessed. Patient is alert, oriented x 3, equal unlabored respirations, skin warm/dry/pink. 09/26 00:03 Reassessment: Patient and/or family updated on plan of care and expected duration. Pain ea level reassessed. Patient is alert, oriented x 3, equal unlabored respirations, skin warm/dry/pink. 01:36 Reassessment: Patient and/or family updated on plan of care and expected duration. Pain ea level reassessed. Patient is alert, oriented x 3, equal unlabored respirations, skin warm/dry/pink. Pt reports pain has decreased. 02:34 Reassessment: Patient and/or family updated on plan of care and expected duration. Pain bb level reassessed. Patient is alert, oriented x 3, equal unlabored respirations, skin warm/dry/pink. pt states he is still having abdominal pain now 02/26 Dr Maki notified. Vital Signs: 09/25 21:24 BP 149 / 43; Pulse 94; Resp 16 S; Temp 97.7(O); Pulse Ox 93% on R/A; Weight 65.77 kg bb (R); Height 5 ft. 5 in. (165.10 cm) (R); 23:30 BP 127 / 81; Pulse 82; Resp 18; Pulse Ox 96% on 2 lpm NC; ea 09/26 00:03 BP 142 / 53; Pulse 79; Resp 18; Pulse Ox 97% ; ea 01:37 BP 142 / 53; Pulse 79; Resp 18; Pulse Ox 98% on 2 lpm NC; ea 02:34 BP 154 / 67; Pulse 77; Resp 16 S; Temp 99.3(O); Pulse Ox 96% on 1 lpm NC; Pain 6/10; bb 09/25 21:24 Body Mass Index 24.13 (65.77 kg, 165.10 cm) bb ED Course: 09/25 20:49 Patient arrived in ED. es 21:21 Triage completed. bb 21:24 Arm band placed on Patient placed in an exam room, on a stretcher, on pulse oximetry. bb Family accompanied patient. 21:27 Ramona Pablo, MELISA is Primary Nurse. ea 21:30 Patient has correct armband on for positive identification. Bed in low position. Call ea light in reach. Side rails up X2. 22:12 Joshua Maki MD is Attending Physician. sara 22:34 XRAY Chest (1 view) In Process Unspecified. EDMS 09/26 00:07 Faby Wynn MD is Hospitalizing Provider. sara 00:[address] via stretcher. kw1 00:28 CT Abd/Pelvis - Without Cont In Process Unspecified. EDMS 00:30 CT completed. Patient tolerated procedure well. Patient moved back from CT. kw1 01:34 No provider procedures requiring assistance completed. ea 01:38 Patient admitted, IV remains in place. ea 02:35 IV is patent, is intact, with fluids infusing freely. bb Administered Medications: 09/25 22:27 Drug: Zofran 4 mg Route: IVP; Site: right antecubital; ea 09/26 00:07 Follow up: Response: No adverse reaction ea 09/25 22:32 Drug: NS 0.9% 1000 ml Route: IV; Rate: 50 ml/hr; Site: right antecubital; ea 09/26 01:35 Follow up: Response: No adverse reaction; IV Status: Infusion continued upon admission; ea IV Intake: 150ml 01:15 Drug: fentaNYL (PF) 25 mcg Route: IVP; Site: right antecubital; ea 01:37 Follow up: Response: No adverse reaction; Pain is decreased ea 01:34 Drug: Zosyn 2.25 grams Route: IVPB; Infused Over: 60 mins; Site: right antecubital; ea 02:10 Follow up: IV Status: Completed infusion; IV Intake: 100ml bb 02:33 Drug: Zofran 4 mg Route: IVP; Site: right antecubital; bb 03:03 Follow up: Response: Nausea is decreased bb 03:02 Drug: fentaNYL (PF) 25 mcg Route: IVP; Site: right antecubital; bb 03:03 Follow up: Response: Other; administered on transfer to floor bb Intake: 01:35 IV: 150ml; Total: 150ml. ea 02:10 IV: 100ml; Total: 250ml. bb Outcome: 00:08 Decision to Hospitalize by Provider. sara 02:54 Admitted to Tele accompanied by tech, family with patient, via stretcher, room 229, bb with chart, Report called to Ramona Valdes RN 02:54 Condition: stable 02:54 Instructed on the need for admit. 03:03 Patient left the ED. bb Signatures: Dispatcher [employer] Joshua Styles MD MD cha Salyer, Edna es Ballard, Brenda, RN RN Ramona Rey RN RN Gena Wise kw1
--- NOTE | 2018-09-26 00:10 | EDPHYS ---
Physician Documentation [facility] Name: Francisco Javier Barnard Age: 68 yrs Sex: Male : 1950 Arrival Date: 09/25/2018 Time: 20:49 Bed 28 Private MD: JOSE Physician Joshua Maki HPI: 09/26 00:03 This 68 yrs old Male presents to ER via Ambulatory with complaints of sara Vomiting, Abdominal Pain. 00:03 The patient presents to the emergency department with nausea, vomiting, abdominal pain, sara of the right upper quadrant, left upper quadrant, right lower quadrant and left lower quadrant. Onset: The symptoms/episode began/occurred 1 day(s) ago. Possible causes: unknown. The symptoms are aggravated by nothing. The symptoms are alleviated by nothing. Associated signs and symptoms: The patient has no apparent associated signs or symptoms. Severity of symptoms: At their worst the symptoms were mild in the emergency department the symptoms are unchanged. The patient has not experienced similar symptoms in the past. Historical: - Allergies: 09/25 21:24 NKDA; bb - Home Meds: 21:24 aspirin 81 mg Oral chew 1 tab once daily [Active]; atorvastatin 20 mg Oral tab bb [Active]; carvedilol 25 mg Oral tab 1 tab at bedtime [Active]; gabapentin 300 mg Oral cap 1 cap 3 times per day [Active]; pantoprazole 40 mg Oral TbEC 1 tab 2 times per day [Active]; terazosin 2 mg Oral cap 1 cap once daily [Active]; aspirin 81 mg Oral chew 1 tab once daily [Active]; furosemide 80 mg Oral tab [Active]; metoclopramide HCl 5 mg Oral tab [Active]; docusate sodium 100 mg Oral tab 1 tab once daily [Active]; - PMHx: 21:24 Diabetes - IDDM; Dialysis; ESRD; Hypertension; bb - PSHx: 21:24 fistula; bb - Immunization history:: Adult Immunizations up to date. - Social history:: Smoking status: unknown. - Ebola Screening: : No symptoms or risks identified at this time. ROS: 09/26 00:04 Constitutional: Negative for fever, chills, and weight loss, Eyes: Negative for injury, sara pain, redness, and discharge, ENT: Negative for injury, pain, and discharge, Neck: Negative for injury, pain, and swelling, Cardiovascular: Negative for chest pain, palpitations, and edema, Respiratory: Negative for shortness of breath, cough, wheezing, and pleuritic chest pain, Back: Negative for injury and pain, : Negative for injury, bleeding, discharge, and swelling, MS/Extremity: Negative for injury and deformity, Skin: Negative for injury, rash, and discoloration, Neuro: Negative for headache, weakness, numbness, tingling, and seizure. Abdomen/GI: Positive for abdominal pain, nausea and vomiting, of the right upper quadrant, left upper quadrant, right lower quadrant and left lower quadrant. Exam: 00:04 Constitutional: This is a well developed, well nourished patient who is awake, alert, sara and in no acute distress. Head/Face: Normocephalic, atraumatic. Eyes: Pupils equal round and reactive to light, extra-ocular motions intact. Lids and lashes normal. Conjunctiva and sclera are non-icteric and not injected. Cornea within normal limits. Periorbital areas with no swelling, redness, or edema. ENT: Nares patent. No nasal discharge, no septal abnormalities noted. Tympanic membranes are normal and external auditory canals are clear. Oropharynx with no redness, swelling, or masses, exudates, or evidence of obstruction, uvula midline. Mucous membranes moist. Neck: Trachea midline, no thyromegaly or masses palpated, and no cervical lymphadenopathy. Supple, full range of motion without nuchal rigidity, or vertebral point tenderness. No Meningismus. Chest/axilla: Normal chest wall appearance and motion. Nontender with no deformity. No lesions are appreciated. Cardiovascular: Regular rate and rhythm with a normal S1 and S2. No gallops, murmurs, or rubs. Normal PMI, no JVD. No pulse deficits. Respiratory: Lungs have equal breath sounds bilaterally, clear to auscultation and percussion. No rales, rhonchi or wheezes noted. No increased work of breathing, no retractions or nasal flaring. Back: No spinal tenderness. No costovertebral tenderness. Full range of motion. Skin: Warm, dry with normal turgor. Normal color with no rashes, no lesions, and no evidence of cellulitis. MS/ Extremity: Pulses equal, no cyanosis. Neurovascular intact. Full, normal range of motion. Neuro: Awake and alert, GCS 15, oriented to person, place, time, and situation. Cranial nerves II-XII grossly intact. Motor strength 5/5 in all extremities. Sensory grossly intact. Cerebellar exam normal. Normal gait. Psych: Awake, alert, with orientation to person, place and time. Behavior, mood, and affect are within normal limits. 00:04 Abdomen/GI: Inspection: abdomen appears normal, Bowel sounds: hyperactive, Palpation: mild abdominal tenderness, in all quadrants, Liver: no appreciated palpable abnormalities, Hernia: not appreciated. Vital Signs: 09/25 21:24 BP 149 / 43; Pulse 94; Resp 16 S; Temp 97.7(O); Pulse Ox 93% on R/A; Weight 65.77 kg (R); Height 5 ft. 5 in. (165.10 cm) (R); 23:30 BP 127 / 81; Pulse 82; Resp 18; Pulse Ox 96% on 2 lpm NC; ea 09/26 00:03 BP 142 / 53; Pulse 79; Resp 18; Pulse Ox 97% ; ea 01:37 BP 142 / 53; Pulse 79; Resp 18; Pulse Ox 98% on 2 lpm NC; ea 02:34 BP 154 / 67; Pulse 77; Resp 16 S; Temp 99.3(O); Pulse Ox 96% on 1 lpm NC; Pain 6/10; 09/25 21:24 Body Mass Index 24.13 (65.77 kg, 165.10 cm) MDM: 09/25 22:15 Patient medically screened. [facility] 09/26 00:05 Data reviewed: vital signs, nurses notes, lab test result(s), EKG, radiologic studies, [facility] CT scan, plain films. 09/25 21:32 Order name: Basic Metabolic Panel; Complete Time: 23:55 09/25 21:32 Order name: CBC with Diff; Complete Time: 23:55 09/25 21:32 Order name: Creatinine for Radiology; Complete Time: 23:55 09/25 21:32 Order name: Hepatic Function; Complete Time: 23:55 09/25 21:32 Order name: Lipase; Complete Time: 23:55 09/25 22:13 Order name: Magnesium; Complete Time: 23:55 [facility] 09/25 22:13 Order name: NT PRO-BNP; Complete Time: 23:55 [facility] 09/25 22:13 Order name: PT-INR; Complete Time: 23:55 [facility] 09/25 22:13 Order name: Troponin (emerg Dept Use Only); Complete Time: 23:55 [facility] 09/25 22:13 Order name: XRAY Chest (1 view) [facility] 09/25 22:13 Order name: Urine Culture [facility] 09/25 22:46 Order name: CBC Smear Scan; Complete Time: 23:55 EDMS 09/25 23:52 Order name: CT Abd/Pelvis - Without Cont [facility] 09/26 00:07 Order name: Blood Culture Adult (2) [facility] 09/25 21:32 Order name: IV Saline Lock; Complete Time: 22:28 09/25 21:32 Order name: Labs collected and sent; Complete Time: 22:28 09/25 22:13 Order name: EKG; Complete Time: 22:13 [facility] 09/25 22:13 Order name: Cardiac monitoring; Complete Time: 23:39 [facility] 09/25 22:13 Order name: EKG - Nurse/Tech; Complete Time: 23:39 [facility] 09/25 22:13 Order name: O2 Per Protocol; Complete Time: 23:39 [facility] 09/25 22:13 Order name: O2 Sat Monitoring; Complete Time: 23:39 [facility] Administered Medications: 09/25 22:27 Drug: Zofran 4 mg Route: IVP; Site: right antecubital; 09/26 00:07 Follow up: Response: No adverse reaction 09/25 22:32 Drug: NS 0.9% 1000 ml Route: IV; Rate: 50 ml/hr; Site: right antecubital; ea 09/26 01:35 Follow up: Response: No adverse reaction; IV Status: Infusion continued upon admission; ea IV Intake: 150ml 01:15 Drug: fentaNYL (PF) 25 mcg Route: IVP; Site: right antecubital; ea 01:37 Follow up: Response: No adverse reaction; Pain is decreased ea 01:34 Drug: Zosyn 2.25 grams Route: IVPB; Infused Over: 60 mins; Site: right antecubital; ea 02:10 Follow up: IV Status: Completed infusion; IV Intake: 100ml bb 02:33 Drug: Zofran 4 mg Route: IVP; Site: right antecubital; bb 03:03 Follow up: Response: Nausea is decreased bb 03:02 Drug: fentaNYL (PF) 25 mcg Route: IVP; Site: right antecubital; bb 03:03 Follow up: Response: Other; administered on transfer to floor bb Disposition: 09/26/18 00:08 Hospitalization ordered by Faby Wynn for Observation. Preliminary diagnosis are Abdominal tenderness, Vomiting, Unspecified combined systolic (congestive) and diastolic (congestive) heart failure - volume overload, End stage renal disease - on hd. - Bed requested for Telemetry/MedSurg (observation). - Status is Observation. bb - Condition is Fair. - Problem is new. - Symptoms have improved. UTI on Admission? No Signatures: Dispatcher [employer] EDMS Stella Arango RN RN mw Anderson, Corey, MD MD cha Ballard, Brenda, RN RN bb Antunez, Elena, RN RN ea Corrections: (The following items were deleted from the chart) 01:02 00:08 Hospitalization Ordered by Faby Wynn MD for Observation. Preliminary mw diagnosis is Abdominal tenderness; Vomiting; Unspecified combined systolic (congestive) and diastolic (congestive) heart failure - volume overload; End stage renal disease. Bed requested for Telemetry/MedSurg (observation). Status is Observation. Condition is Fair. Problem is new. Symptoms have improved. UTI on Admission? No. sara 02:12 01:02 09/26/2018 00:08 Hospitalization Ordered by Faby Wynn MD for Observation. sara Preliminary diagnosis is Abdominal tenderness; Vomiting; Unspecified combined systolic (congestive) and diastolic (congestive) heart failure - volume overload; End stage renal disease. Bed requested for Telemetry/MedSurg (observation). Status is Observation. Condition is Fair. Problem is new. Symptoms have improved. UTI on Admission? No. mw 03:03 02:12 09/26/2018 00:08 Hospitalization Ordered by Faby Wynn MD for Observation. bb Preliminary diagnosis is Abdominal tenderness; Vomiting; Unspecified combined systolic (congestive) and diastolic (congestive) heart failure - volume overload; End stage renal disease - on hd. Bed requested for Telemetry/MedSurg (observation). Status is Observation. Condition is Fair. Problem is new. Symptoms have improved. UTI on Admission? No. sara
[2018-09-26] MEDS ORDERED: PIPER/TAZO/NS 2.25gm 2.25 GM/50 ML BAG ONE (00:25)
[2018-09-26] MEDS ORDERED: FENTANYL CITR 100 MCG/2 ML ONE (01:10)
--- NOTE | 2018-09-26 02:28 | P.HP ---
Certification for Inpatient Patient admitted to: Observation With expected LOS: <2 Midnights Practitioner: I am a practitioner with admitting privileges, knowledge of patient current condition, hospital course, and medical plan of care. Services: Services provided to patient in accordance with Admission requirements found in Title 42 Section 412.3 of the Code of Federal Regulations Patient History Date of Service: 09/26/18 Reason for admission: abdominal pain, n/v History of Present Illness: Mr Barnard is a 68 years old male with history of ESRD, failed renal transplant, currently on HD, HTN, DM II, who woke up this morning with diffuse abdominal pain associated with nausea and vomiting. He was unable to keep solid or liquids down. He denied any fever, chills or diarrhea episodes. No chest pain or SOB. He went to have HD today, and after finish it, he was weaker than usual, and kind of confused according to his . In ER lab work shows normal WBC count, abnormal renal function as expected and elevated ProBNP. CXR bilateral infiltrate consistent with CHF, similar to previous images. Allergies No Known Drug Allergies Allergy (Verified 04/09/16 21:52) Unknown No Known Allergies Allergy (Uncoded 03/17/18 22:31) Unknown Home medications list reviewed: Yes Home Medications: Gabapentin [Neurontin*] 100 mg PO TID 04/09/16 Terazosin HCl 1 cap PO BEDTIME 02/17/17 Aspirin 1 tab PO DAILY 09/28/17 Atorvastatin Calcium 1 tab PO BEDTIME 09/28/17 Furosemide 2 tab PO BID 09/28/17 Hydralazine [Apresoline*] 10 mg PO TID #90 tab 10/02/17 Carvedilol 1 tab PO BEDTIME 08/19/18 Citalopram Hydrobromide [Citalopram HBr] 1 tab PO DAILY 08/19/18 Hydrocodone Bit/Acetaminophen [Hydrocodon-Acetaminophn 10-325] 1 tab PO Q6HP PRN 08/19/18 Bisacodyl [Dulcolax*] 10 mg [place] DAILY PRN #0 supp 08/20/18 Docusate [Colace Cap*] 100 mg PO BID #60 cap 08/20/18 Pantoprazole Sodium 1 tab PO [id number] 08/20/18 Polyethyl Gly 3350 [Glycolax*] 17 gm PO DAILY #1 bottle 08/20/18 - Past Medical/Surgical History Diabetic: Yes -: DM-2 -: HTN -: PE -: GERD -: Depression -: ESRD on HD -: Cholecystectomy -: Renal transplant 2007 -: Hernia Repair - Social History Alcohol use: Yes CD- Drugs: No Caffeine use: Yes Place of Residence: Home Review of Systems 10-point ROS is otherwise unremarkable Physical Examination - Physical Exam General: Alert, In no apparent distress HEENT: Atraumatic, PERRLA, Mucous membr. moist/pink, EOMI, Sclerae nonicteric Neck: Supple, 2+ carotid pulse no bruit, No LAD, Without JVD or thyroid abnormality Respiratory: Normal air movement, Crackles/rales (fine bibasilar rales) Cardiovascular: Normal S1 S2, No gallops Gastrointestinal: Normal bowel sounds, No tenderness Musculoskeletal: No tenderness Integumentary: No rashes Neurological: Normal speech, Normal strength at 5/5 x4 extr, Normal tone, Normal affect Lymphatics: No axilla or inguinal lymphadenopathy - Studies Laboratory Data (last 24 hrs) 09/25/18 22:10: PT 13.7 H, INR 1.16 09/25/18 22:10: Magnesium 2.0 09/25/18 22:10: Creatinine 4.87 H 09/25/18 22:10: WBC 10.0, Hgb 11.5 L, Hct 34.9 L, Plt Count 209 09/25/18 22:10: Sodium 133 L, Potassium 4.2, BUN 30 H, Creatinine 4.95 H, Glucose 143 H, Total Bilirubin 0.6, AST 34, ALT 47, Alkaline Phosphatase 199 H, Lipase 25 L Assessment and Plan - Problems (Diagnosis) (1) Epigastric abdominal pain Current Visit: No Status: Acute (2) Troponin level elevated Current Visit: No Status: Acute (3) Diabetes Onset Date: 04/12/16 Current Visit: Yes Status: Chronic Qualifiers: Diabetes mellitus type: type 2 Diabetes mellitus longterm insulin use: without longterm use Diabetes mellitus complication status: with hyperglycemia Qualified Code(s): E11.65 - Type 2 diabetes mellitus with hyperglycemia (4) ESRD (end stage renal disease) Onset Date: 09/29/17 Current Visit: No Status: Chronic (5) HTN (hypertension) Onset Date: 04/12/16 Current Visit: No Status: Chronic Qualifiers: Hypertension type: essential hypertension Qualified Code(s): I10 - Essential (primary) hypertension - Plan The patient will be admitted to the hospital due to acute gastroenteritis. He is still symptomatic for nausea and vomiting. Will be admitted under observation for symptom control. He may go home in the morning if tolerate oral intake. - Advance Directives Does patient have a Living Will: No Does patient have a Durable POA for Healthcare: No - Code Status/Comfort Care Code Status Assessed: Yes Code Status: Full Code
[2018-09-26] MEDS ORDERED: ONDANSETRON 4 MG/2 ML VIAL ONE (02:38)
[2018-09-26 06:01] LABS: Absolute Lymphocytes (CBC) 1.2 K/uL (0.7-4.9); Absolute Monocytes 0.7 K/uL (0.1-1.3); Absolute Neutrophil 8.5 K/uL (1.8-8.0); Basophils % 0.6 % (0-1.3); Eosinophils % 0.2 % (0-4.4); Lymphocytes % 11.2 % (15.3-44.8); MPV 8.3 fL (7.6-11.3); RBC Red Blood Cell Count 3.65 M/uL (4.33-5.43)
[2018-09-26 06:26] LABS: Potassium 4.6 mmol/L (3.5-5.1)
[2018-09-26] MEDS: INSULIN -REGULAR HUMAN 50 UNIT/0.5 ML ML SQ SCH ×4 (07:30→22:38)
--- NOTE | 2018-09-26 07:35 | EKG ---
Test Date: 2018-09-25 Test Time: 23:12:19 Salon Designer: TONY MEASUREMENT RESULTS: Intervals: Rate: 83 MD: 260 QRSD: 96 QT: 378 QTc: 444 [place]: P: MD: 260 QRS: 81 T: 201 INTERPRETIVE STATEMENTS: Sinus rhythm with first degree AV block ST & T wave abnormality, consider lateral ischemia Abnormal ECG Compared to ECG 08/19/2018 12:52:49 ST (T wave) deviation still present Electronically Signed On 09-26-18 07:35:09 FRAME POLISHER by Janes Oliveira
--- NOTE | 2018-09-26 08:07 | RAD REPORT ---
EXAM DESCRIPTION: CT - Abdomen Pelvis Wo Contrast - 09/26/2018 5:51 am CLINICAL HISTORY: Abdominal pain and vomiting COMPARISON: August 2018 TECHNIQUE: Computed axial tomography of the abdomen and pelvis was obtained. IV and oral contrast we re not requested. Preliminary report generated by orderbolt and reviewed prior to dictation All CT scans are performed using dose optimization technique as appropriate and may include automated exposure control or mA/KV adjustment according to patient size. FINDINGS: The evaluation of solid organs, vessels and bowel is limited secondary to the lack of con trast administration. Small bilateral pleural effusions mildly increased in size The liver, spleen, adrenals appear grossly normal. Atrophic pancreas. Small kidneys with a transplant ed kidney in left pelvis. No hydronephrosis The appendix is normal. There is no evidence of diverticulitis. T12 vertebral plana with retropulsion of fracture fragments into the spinal canal without significant change from 2016 IMPRESSION: Small bilateral pleural effusions No acute abnormality involving the abdomen/pelvis is seen
--- NOTE | 2018-09-26 08:25 | RAD REPORT ---
EXAM DESCRIPTION: Mey Single View09/25/2018 10:36 pm CLINICAL HISTORY: Cough COMPARISON: August 2018 FINDINGS: Small bilateral pleural effusions. The heart is normal size. Patchy opacities seen within the mid right lung IMPRESSION: Patchy opacity within the mid right lung probably representing pneumonia. There may be m ild superimposed interstitial pulmonary edema Small bilateral pleural effusions
[2018-09-26] MEDS: ONDANSETRON 4 MG/2 ML VIAL IV PRN ×2 (09:50→17:14)
[2018-09-26] MEDS: ACETAMINOPHEN 500 MG TAB PO PRN ×2 (09:50→17:14)
[2018-09-26] MEDS: GABAPENTIN 100 MG CAP PO SCH ×2 (14:09→22:38)
[2018-09-26] MEDS ORDERED: TERAZOSIN HCL 1 MG CAP PO SCH (21:00)
[2018-09-26] MEDS ORDERED: ATORVASTATIN 40 MG TAB PO SCH (21:00)
[2018-09-26] MEDS ORDERED: HYDROCODONE/APAP 10/325 TAB PO ONE (22:36)
[2018-09-26] MEDS: DOCUSATE NA 100 MG CAP PO SCH (22:37)
[2018-09-27] MEDS ORDERED: ZOLPIDEM TARTRATE 5 MG TABLET PO ONE (01:00)
[2018-09-27] MEDS ORDERED: PANTOPRAZOLE 40MG TABLET PO SCH (06:00)
[2018-09-27 06:13] VITALS: BMI 25.4
[2018-09-27 06:15] LABS: Absolute Lymphocytes (CBC) 1.3 K/uL (0.7-4.9); Absolute Monocytes 0.7 K/uL (0.1-1.3); Absolute Neutrophil 3.2 K/uL (1.8-8.0); Basophils % 1.3 % (0-1.3); Eosinophils % 7.4 % (0-4.4); Hematocrit 32.5 % (39.6-49.0); MPV 8.6 fL (7.6-11.3); RBC Red Blood Cell Count 3.59 M/uL (4.33-5.43)
[2018-09-27 06:49] LABS: Potassium 4.9 mmol/L (3.5-5.1)
[2018-09-27] MEDS: INSULIN -REGULAR HUMAN 50 UNIT/0.5 ML ML SQ SCH (07:30)
[2018-09-27] MEDS: DOCUSATE NA 100 MG CAP PO SCH (08:56)
[2018-09-27] MEDS: GABAPENTIN 100 MG CAP PO SCH (08:56)
[2018-09-27 08:57] VITALS: BP 185/76
[2018-09-27] MEDS ORDERED: MEDIHONEY 44 ML TOPICAL TUBE TOP SCH (09:00)
[2018-09-27] MEDS ORDERED: ASPIRIN 81 MG CHEWABLE TABLET PO SCH (09:00)
[2018-09-27] MEDS ORDERED: METOCLOPRAMIDE 5 MG TAB PO SCH (09:00)
[2018-09-27] MEDS ORDERED: CARVEDILOL 25 MG TAB PO SCH (09:00)
[2018-09-27] MEDS ORDERED: CITALOPRAM 10 MG TABLET PO SCH (09:00)
[2018-09-27 09:05] VITALS: TEMP 97.9
[2018-09-27] MEDS ORDERED: HYDROCODONE/APAP 5/325 MG TAB PO ONE (09:20)
[2018-09-27 10:44] VITALS: O2SAT 96
--- NOTE | 2018-09-27 12:01 | P.DS ---
Admission Date: 09/26/18 Discharge Date: 09/27/18 Primary Care Provider: Dr. Galarza; Nephrology-Dr. Bhardwaj Disposition: ROUTINE DISCHARGE Discharge Condition: GOOD Reason for Admission: abdominal pain, n/v Consultations: Nephrology-Dr. Bhardwaj Procedures: CT Scan: COMPARISON: August 2018 TECHNIQUE: Computed axial tomography of the abdomen and pelvis was obtained. IV and oral contrast were not requested. Preliminary report generated by [facility] and reviewed prior to dictation All CT scans are performed using dose optimization technique as appropriate and may include automated exposure control or mA/KV adjustment according to patient size. FINDINGS: The evaluation of solid organs, vessels and bowel is limited secondary to the lack of contrast administration. Small bilateral pleural effusions mildly increased in size The liver, spleen, adrenals appear grossly normal. Atrophic pancreas. Small kidneys with a transplanted kidney in left pelvis. No hydronephrosis The appendix is normal. There is no evidence of diverticulitis. T12 vertebral plana with retropulsion of fracture fragments into the spinal canal without significant change from 2016 IMPRESSION: Small bilateral pleural effusions No acute abnormality involving the abdomen/pelvis is seen Medical Problem List: Epigastric pain likely viral gastroenteritis End-stage renal disease, failed renal transplant on hemodialysis Hypertension Diabetes mellitus type 2 GERD Chronic bilateral pleural effusions Brief History of Present Illness: 68-year-old male presented to the emergency room with epigastric pain. Patient with history of end-stage renal disease on hemodialysis, diabetes, hypertension, GERD. Patient admitted for further evaluation. Hospital Course: Patient presented with epigastric pain. CT scan did not reveal any significant abnormality. This was likely gastroenteritis. This resolved quickly. Patient with history of GERD and chronic epigastric pain from time to time. He reports that this occurs usually after dialysis. Patient will continue with Protonix 40 mg 1 pill daily. Patient may continue with Reglan as needed for nausea. Recommendation for the patient follow up with GI as an outpatient to further monitor and address. Patient with end-stage renal disease, failed renal transplant on hemodialysis. Patient will continue with nephrology evaluation as an outpatient. Patient will continue with dialysis later today as an outpatient. Patient with hypertension, diabetes. Patient currently stable this time. Patient continue with his current medications. Vital Signs/Physical Exam: Temp Pulse Resp BP Pulse Ox 97.9 F 61 18 185/76 H 96 09/27/18 08:00 09/27/18 08:56 09/27/18 08:00 09/27/18 08:56 09/27/18 08:00 General: Alert, In no apparent distress, Oriented x3, Cooperative HEENT: Atraumatic Neck: Supple Respiratory: Clear to auscultation bilaterally, Normal air movement Cardiovascular: Normal pulses, Regular rate/rhythm Gastrointestinal: Normal bowel sounds, Soft and benign, Non-distended, No ascites, No tenderness, No masses, No rebound, No guarding Musculoskeletal: No erythema, No tenderness, No warmth Integumentary: No tenderness/swelling, No erythema, No warmth, No cyanosis Neurological: Normal speech, Normal strength at 5/5 x4 extr, Normal tone, Normal affect Laboratory Data at Discharge: WBC 5.6 K/uL (4.3-10.9) D 09/27/18 05:46 Hgb 10.6 g/dL (13.6-17.9) L 09/27/18 05:46 Hct 32.5 % (39.6-49.0) L 09/27/18 05:46 Plt Count 190 K/uL (152-406) 09/27/18 05:46 PT 13.7 SECONDS (9.5-12.5) H 09/25/18 22:10 INR 1.16 09/25/18 22:10 Sodium 135 mmol/L (136-145) L 09/27/18 05:46 Potassium 4.9 mmol/L (3.5-5.1) 09/27/18 05:46 BUN 62 mg/dL (7-18) H D 09/27/18 05:46 Creatinine 7.48 mg/dL (0.55-1.3) H* D 09/27/18 05:46 Glucose 92 mg/dL (74-106) 09/27/18 05:46 Magnesium 2.0 mg/dL (1.8-2.4) 09/25/18 22:10 Total Bilirubin 0.6 mg/dL (0.2-1.0) 09/25/18 22:10 AST 34 U/L (15-37) 09/25/18 22:10 ALT 47 U/L (12-78) 09/25/18 22:10 Alkaline Phosphatase 199 U/L (45-117) H 09/25/18 22:10 Lipase 25 U/L (73-393) L 09/25/18 22:10 Home Medications: RX: Gabapentin [Neurontin*] 100 mg PO TID 04/09/16 RX: Terazosin HCl 1 cap PO BEDTIME 02/17/17 RX: Aspirin 1 tab PO DAILY 09/28/17 RX: Atorvastatin Calcium 1 tab PO BEDTIME 09/28/17 RX: Carvedilol 1 tab PO DAILY 08/19/18 RX: Citalopram Hydrobromide [Citalopram HBr] 1 tab PO DAILY 08/19/18 RX: Docusate [Colace Cap*] 100 mg PO BID #60 cap 08/20/18 RX: Pantoprazole Sodium 1 tab PO CXNLB0PM 08/20/18 RX: Hydrocodone/Acetaminophen [Hydrocodone-Acetamin 10-325 mg] 1 tab PO DAILY RX: Metoclopramide HCl 5 mg PO DAILY 09/26/18 Patient Discharge Instructions: Patient will follow up with his PCP in 1 week to follow up this hospitalization. Patient with epigastric pain. This is likely chronic with possible underlying viral gastritis. Patient to continue with Protonix 40 mg daily. Recommendation is for the patient follow up with GI as an outpatient to further monitor and address. Patient may also continue with Reglan as directed. Diet: Renal Activity: Ad porfirio Time spent managing pt's care (in minutes): 55
== END 2018-09-27 10:20 | disposition home or self-care (01) ==
LOC: ER 20:44 → ERHOLD 09-26 00:08 → 2ND 09-26 02:52
PROVIDERS: ADMIT Internal Medicine; ATTEND Internal Medicine
DX: R10.13 Epigastric pain (principal); I12.0 Hypertensive chronic kidney disease with stage 5 chronic kidney disease or end stage renal disease; E11.22 Type 2 diabetes mellitus with diabetic chronic kidney disease; N18.6 End stage renal disease; J90 Pleural effusion, not elsewhere classified; K21.9 Gastro-esophageal reflux disease without esophagitis; Z94.0 Kidney transplant status
CPT/HCPCS: 36415 ×2; 71045; 74176; 80048 ×3; 80076; 82962 ×5; 83690; 83735; 83880; 84484; 85025 ×3; 85610; 87040; 93005; 96361; 96365; 96375; 99285; G0378 ×2; J2405 ×4; J2543; J3010; J7030

== ENCOUNTER 2018-11-29 17:24 | Emergency (ER) | payer OTHER ==
--- OUTSIDE RECORDS SUMMARY | 2018-11-29 17:28 | XMS REPORT ---
:1950 [facility] Address [address] [place] [address] Dr. Chacon [address] [place] [id number] Care Team Providers Name Role Phone Unavailable Unavailable Unavailable Problems This patient has no known problems. Allergies, Adverse Reactions, Alerts This patient has no known allergies or adverse reactions. Medications This patient has no known medications.
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
[2018-11-29 19:49] VITALS: TEMP 97.7
[2018-11-29 19:50] VITALS: BP 119/58; O2SAT 96
== END 2018-11-29 19:24 | disposition home or self-care (01) ==
LOC: ER 17:24
DX: T22.212A Burn of second degree of left forearm, initial encounter (principal); L03.114 Cellulitis of left upper limb; X08.8XXA Exposure to other specified smoke, fire and flames, initial encounter; Y93.G3 Activity, cooking and baking; Y92.000 Kitchen of unspecified non-institutional (private) residence as the place of occurrence of the external cause
CPT/HCPCS: 99283